=== PATIENT | female | born 1950 | race Caucasian/White ===

== ENCOUNTER 2020-02-27 10:10 | Outpatient (RCR) | payer MEDICARE, SELFPAY ==
--- NOTE | 2020-02-27 | CT_ITS ---
Radiation Therapy Planning CT images; total exam DLP: 547.81 mGy-cm MTDD
--- NOTE | 2020-02-28 11:39 | N.ONRAD NP_ITS ---
Radiation Oncology New Patient Visit Patient: Shanae Seth MR#: [id number] : 1950> Age: 69> Sex: Female> Dictated by: Dr. 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 Breast: Pending as clinically indicated. The lung primary takes precedence over the left breast nodule. Purpose of Visit: Discuss the role of radiotherapy with curative intent. History of Present Illness: The patient is a 69-year-old female with a [id number] history of smoking (recently quit) and coronary artery disease status post cardiac stent and anticoagulation with Plavix. During work-up for a planned coronary artery bypass graft procedure, a CT of the chest (01/08/2020) revealed a large pulmonary mass involving the left lung extending into the left hilum. There is mediastinal adenopathy present with a large subcarinal mass, which measures 3.4 cm in diameter. The left perihilar mass measures [address] of the chest also noted a 1.4 cm nodule within the left breast. A subsequent bronchoscopy (01/11/2020) & left upper lobe brushing revealed atypical cells most consistent with small cell carcinoma (see addendum comment on the pathology report). Further work-up inclusive of an MRI of the brain (01/25/2020) revealed multiple ring-enhancing lesions with surrounding vasogenic edema (no midline shift) consistent with metastatic disease. The patient was prescribed Decadron 4 mg 3 times daily due to her progressive difficulty with ambulation and she was simulated with a plan to begin whole brain radiation therapy. Ultimately, the patient elected not to begin radiation therapy at the [facility] and instead sought to get treatment closer to home. The patient reports being confused with respect to her steroid, and she does not know how many tablets she takes per day. She reports no seizures, headaches, blurred/double vision, shortness of breath, changes in taste, or bone pain. But she does complain of progressive difficulty with ambulation, as well as fatigue. Current Medications: Acetaminophen, adult Aspirin Regimen, dexamethasone, escitalopram Oxalate, ferrous Sulfate, metFORMIN HCl, metoprolol Tartrate, nitroglycerin, plavix, simvastatin, tresiba FlexTouch, zofran ODT. Allergies: No Known Allergies Medical History: - Anxiety, - coronary artery disease, - hypercholesterolemia, - hypertension, - myocardial infarction, - renal failure, - stroke, - thyroid nodule, - type II diabetes. No history of collagen vascular disease. No previous radiation therapy. Surgical History: Appendectomy, bronchoscopy, coronary angiogram with stent placement, portacath placement and thyroidectomy. Social History: Last screened on 02/27/2020 - Yes - but has quit for less than one year. Smoked 1.0 pack/day for 55 years (55 pack years). Last screened on 02/20/2020 - Never drank. Patient indicated use of the following products: cigarettes. Current Complaints / Review of Systems: Constitutional - Complains of lack of appetite. Complains of moderate fatigue. Complains of night sweats which occur occasionally. Complains of rigors / chills occurring frequently. Complains of change in weight has lost about 20 lbs. the past couple of months but is stable now. Denies fever. Eyes - Denies blurred vision, double vision and photophobia. ENMT - Denies dysphagia, ear pain, mouth dryness, stomatitis and altered taste. Neck - Denies neck pain. Integumentary - Complains of rash in the groin. Breasts - Denies pain. Cardiovascular - Complains of moderate chest pain in the substernal. Denies edema. Respiratory - Complains of a moderate cough which is productive. Complains of dyspnea associated with normal activity. Complains of wheezing. Denies hemoptysis. Gastrointestinal - Complains of abdominal pain that is persistent located in the lower abdomen. Complains of intermittent constipation. Complains of heartburn / dyspepsia. Complains of nausea. Denies diarrhea and vomiting. Has distended abdomen. Genitourinary (F) - Complains of nocturia gets up about 2 times per night. Denies dysuria, frequency, urgency, vaginal discharge / bleeding and vaginal spotting. Musculoskeletal - Complains of generalized muscle weakness. Denies bone pain and joint pain. Neurologic - Complains of disorientation to time. Complains of dizziness that occurs upon sitting to standing. Denies headaches. Endocrine - Complains of Type 2 diabetes. Denies thyroid disease. Hematologic/Lymphatic - Denies tender or enlarged lymph nodes.. Vital Signs: Performed on 02/27/2020 11:33 AM BMI - 26.546 kg/m2 (high), Height - 60.50 in, Weight - 138.2 lbs, Temperature - 97.3 f, Pulse - 68, Respiration - 20, O2 Sat - 100 %, Pain - 0 and BP - 148/ 72 mm(hg)(high/). Physical Exam: GENERAL:??? The patient is alert, and in no acute distress. HEENT:??? Head is normocephalic. Face is symmetric. External ocular movements are intact. Sclera and conjunctivae are non erythematous. There are no clinical findings consistent with oral thrush. NECK:??? Trachea is midline.??? Thyroid is not enlarged by palpation.??? LYMPH NODES:??? There is no cervical or supraclavicular adenopathy bilaterally. LUNGS:??? Clear to auscultation bilaterally. Respiratory movement is unlabored. HEART:??? Regular rate and rhythm. EXTREMITIES:??? No deformities. SLOPE HOIST OPERATOR:??? Cranial nerves II-XII are intact and without focal deficits.??? Psych: Affect is normal. Skin: Cursory review of the skin reveals no obvious lesions concerning for malignancy. Performance Status: 3 - Capable of only limited self-care, confined to bed or chair more than 50% of waking hours. (ECOG) Impression: The patient is a 69-year-old female with extensive stage small cell lung carcinoma originating in the left hilar region of the lung. She also has 5 intracranial metastatic lesions involving the right cerebellum, left occipital lobe, right posterior parietal lobe, right superior parietal lobe, and left superior parietal lobe. These lesions demonstrate mild/moderate vasogenic edema without a midline shift and the largest lesion measures 2.2 cm (right posterior parietal lobe). We discussed radiation logistics, prognosis, treatment options, and side effects to radiation which include reduced cognition over time, short-term memory loss, alopecia, and fatigue. We will begin radiation therapy planning today (30 Gy/10 fractions), with plans to start on 02/28/2020. It is not entirely clear to me when the patient actually began dexamethasone or what she takes on a daily basis. Therefore, we will prescribe medication on a weekly basis and begin a slow taper. The patient was recommended to see medical oncology over the next 2 weeks to evaluate for subsequent systemic therapy. Depending on the patient's overall medical condition, perform an status, the patient's treatment goals, and ability to tolerate treatment, it may be worthwhile to consider a PET/CT in the future, plus or minus a left breast mammography/biopsy as clinically indicated. I will defer to medical oncology's opinion regarding these studies. Signed by: Arden Modi MD 02/28/2020 11:59:37 AM <<Signature on File>> CPT Code: CPT Code:
== END 2020-02-27 23:59 | disposition home or self-care (01) ==
LOC: ONCMED 10:10
PROVIDERS: Visit Provider Radiology Radiation Oncology
DX: C34.02 Malignant neoplasm of left main bronchus (principal); C79.31 Secondary malignant neoplasm of brain; N63.20 Unspecified lump in the left breast, unspecified quadrant
CPT/HCPCS: 77290; 77334

== ENCOUNTER 2020-03-10 05:23 | Outpatient (RCR) | payer MEDICARE, SELFPAY ==
--- NOTE | 2020-03-06 07:43 | ONCRAD TMN_ITS ---
Radiation Oncology Weekly Treatment Management Patient: Shanae Seth MR#: [id number] : 1950 Age: 69 Sex: Female Dictated by: Dr. 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 Breast: Pending as clinically indicated. The lung primary takes precedence over the left breast nodule. Radiotherapy to date: Course: Whole Brain, Treatment Site: Whole Brain, Ref. ID: [id number], Energy: 6X, Dose/Fx (cGy): 300, #Fx: , Dose Correction (cGy): 0, Total Dose (cGy): 1,200, Start Date: 02/28/2020, Elapsed Days: 5 Reason for visit: The patient is being seen today as part of their regularly scheduled weekly on treatment visits to assess for acute toxicities from radiotherapy. Interim History: The patient began treatment today and she is tolerating it well. Current Medications: Acetaminophen, adult Aspirin Regimen, dexamethasone, escitalopram Oxalate, ferrous Sulfate, metFORMIN HCl, metoprolol Tartrate, nitroglycerin, plavix, simvastatin, tresiba FlexTouch, zofran ODT. Allergies: No Known Allergies Vital Signs: Performed on 03/04/2020 11:29 AM Height - 60.50 in, Weight - 137.6 lbs (low), BSA - 1.60 sq.m, BMI - 26.43, Temperature - 97.8 f (low), Pulse - 70 /min, Respiration - 20 /min, O2 Sat - 100 %, Pain - 0, BP - 179/ 87 mm(hg)(high/), Performed on 03/04/2020 12:12 PM BMI - 26.431 kg/m2 (high), Height - 60.50 in, Weight - 137.6 lbs, Temperature - 97.8 f, Pulse - 70, Respiration - 20, O2 Sat - 100 %, Pain - 0 and BP - 179/ 87 mm(hg)(high/). Physical Exam: Appears stable, no skin erythema or desquamation. Performance Status: 3 - Capable of only limited self-care, confined to bed or chair more than 50% of waking hours. (ECOG) Lab: None pending in Radiation Oncology. Imaging: Radiation therapy imaging related to accurate target localization (i.e. KV, MV and CBCT) was reviewed. Appropriate changes, if any, were made to ensure treatment accuracy. Plan: The patient is tolerating therapy reasonably well. Radiotherapy will continue as planned. CPT: 82827 Signed by: Dr. Arden Modi 03/06/2020 7:41:59 AM
--- NOTE | 2020-03-07 11:54 | ONC CON_ITS ---
Dr. Westbrook New Patient Note Patient: Shanae Seth Unit #: [id number]: 1950 Dicatated By: Jennifer Westbrook M.D.Date of Visit: Mar 04, 2020 Onc MED New Patient/Consult Referring Physician: Tatyana Kyle History of Present Illness: Ms. Shanae Seth, is a 69-year-old female with a longstanding history of smoking e.g. more than 50 years but patient said she recently quit, recently diagnosed with extensive stage small cell lung cancer with multiple brain mets. As per patient and family during work-up for planned coronary artery bypass graft procedure, on January 08, [address] scan of chest which showed a large pulmonary mass in her left lung extending to the left hilum with mediastinal lymphadenopathy/subcarinal mass measured 3.4 cm in size in the left perihilar mass measuring [address] scan of the chest also noted 1.4 cm nodule in the left breast. On January 11, 2020 patient underwent bronchoscopy and left upper lobe brushing which showed atypical cell and most consistent with small cell carcinoma. Further work-up including MRI scan of the brain done on January 25, 2020 showed multiple ring-enhancing lesions with surrounding vasogenic edema consistent with brain mets there was no evidence of midline shift. Patient was started on dexamethasone 4 mg 3 times a day due to progressive difficulty with balance and questionable mental status changes and she was referred to radiation oncology. And now being evaluated for whole brain radiation therapy. Patient denies any hemoptysis or hematemesis, denies any shortness of breath, denies any headaches or blurred vision, denies any seizure-like activity but generalized weakness and fatigue. And emotional outbursts. Past Medical History: Ms. Seth's medical history consists of anxiety, coronary artery disease, hypercholesterolemia, hypertension, myocardial infarction, renal failure, stroke, thyroid nodule, and type II diabetes. Past Surgical History: Ms. Seth's surgical/procedural history consists of appendectomy, bronchoscopy, coronary angiogram with stent placement, portacath placement, and thyroidectomy. Medications: Acetaminophen 2 Tablet (of 500 mg) Oral PRN, Adult Aspirin Regimen 1 Tablet (of 81 mg) Tablet, enteric coated Oral daily, Escitalopram Oxalate 1 Tablet (of 20 mg) Oral daily, Ferrous Sulfate 1 Tablet (of 325 (65 fe) mg) Oral daily, metFORMIN HCl 1 tablespoonful(s) (of 500 mg) Tablet Oral daily, Metoprolol Tartrate 1 Tablet (of 100 mg) Oral b.i.d., Nitroglycerin 1 Tablet (of 0.4 mg) Tablet, sublingual Sublingual PRN, Plavix 1 Tablet (of 75 mg) Oral daily, Simvastatin 1 Tablet (of 5 mg) Oral at bedtime, Tresiba FlexTouch 40 Units (of 100 Units/mL) Subcutaneous daily, Zofran ODT 1 Tablet (of 4 mg) Tablet Dispersable Oral q 6 hours Allergies: No Known Allergies. Social History: Ms. Seth is . Ms. Seth quit smoking less than one year ago but had smoked 1.0 pack/day for 55 years. She has no history of drinking. She has indicated exposure to the following products: cigarettes. Family History: There is no documented family history. Review Of Symptoms: Review of Systems is not available for this patient. Vital Signs: Performed on Mar 04, 2020 12:12: 60.50 in, 137.6 lbs, 97.8 F, 70, 20, 179/87 mm(hg) (HIGH), 100 %, 0, Performed on Mar 04, 2020 12:12: 26.431 kg/m2 (HIGH), and Performed on Mar 04, 2020 11:29: 1.60 sq.m. Performance Status: 1 - No physically strenuous activity, but ambulatory and able to carry out light or sedentary work (e.g. office work, light house work). (ECOG) Physical Examination: ENMT - No mouth sores, no thrush, no jaundice, Respiratory - Lungs are clear to auscultation, Cardiovascular - Regular rate and rhythm of heart, Abdomen - Soft, bowel sounds present, Extremities - No visible edema. Lab/Imaging: Most recent lab results are not available for this patient. Impression: Extensive stage small cell lung cancer per bronchoscopy done on January 11, 2020 CT scan of the chest done on January 08, 2020 large left hilar mass starting in suprahilar region extending down to hilum with mediastinal disease involving subcarinal lymph node which measured 3.4 cm diameter and left perihilar mass which measured 3 cm., COPD and emphysematous changes are present. No definite abnormality seen in upper abdomen and the liver or spleen And also showed 1.4 cm diameter mass in left breast MRI scan of the brain done on January 25, 2020 shows multiple ring-enhancing lesions with surrounding vasogenic edema Clinical stage, extensive stage with brain mets COPD/emphysema History of smoking more than 50 years. Patient recently quit Plan: Discussed with patient and family regarding her disease status and treatment options, patient has extensive brain mets, symptomatic, now being treated with dexamethasone and also being evaluated for whole brain radiation therapy. In the meantime, we will consider Port-A-Cath placement and once patient complete her whole brain radiation therapy, will consider starting on systemic therapy with carboplatin/etoposide plus minus Tecentriq Every 3 weeks and if needed may consider Neulasta to prevent chemotherapy-induced neutropenia. All the side effects possible benefits associated with systemic chemotherapy including but not limited to bone marrow suppression, hair loss, nausea vomiting, were mentioned, further teaching will done by chemotherapy nurse. Will obtain approval from her insurance prior to the treatment and patient will return to clinic 1 week after completion of whole brain radiation therapy. We will also consider starting allopurinol 100 mg p.o. 3 times daily prior to chemotherapy. Patient has large subcarinal lymph node, at this time patient has no symptoms due to external compression on her esophagus but if patient develops some symptoms due to disease progression in chest, we may consider palliative radiation to chest while patient is completing whole brain radiation therapy. Signed By: Jennifer Westbrook M.D. <<Signature on File>>
== END 2020-03-10 23:00 | disposition home or self-care (01) ==
LOC: ONCMED 05:23
PROVIDERS: Absent Provider Radiology Radiation Oncology; Visit Provider Radiology Radiation Oncology
DX: Z51.0 Encounter for antineoplastic radiation therapy (principal); C79.31 Secondary malignant neoplasm of brain; C34.12 Malignant neoplasm of upper lobe, left bronchus or lung; N63.20 Unspecified lump in the left breast, unspecified quadrant; R59.0 Localized enlarged lymph nodes; J43.9 Emphysema, unspecified; Z87.891 Personal history of nicotine dependence; Z79.52 Long term (current) use of systemic steroids
CPT/HCPCS: 77295; 77300; 77334; 77336; 77387; 77412; G0463

== ENCOUNTER 2020-03-10 23:50 | Inpatient (IN) | payer MEDICARE, SELFPAY ==
[2020-03-11] VITALS (25 sets, daily range): BP systolic 84–168; BP diastolic 48–110; PULSE 60–107; RESP 1–28; TEMP 36.3–37.4; O2SAT 89–100; BMI 28.3
--- NOTE | 2020-03-11 00:04 | XRR_ITS ---
PROCEDURE INFORMATION: Exam: XR Chest, 1 View Exam date and time: 03/11/2020 12:24 AM Age: 69 years old Clinical indication: Other: AMS; Prior surgery; Surgery type: Thyroid, appy, stent, port TECHNIQUE: Imaging protocol: XR of the chest Views: 1 view. COMPARISON: CT chest [facility] [id number] 01/08/2020 3:26 PM FINDINGS: Lungs: Calcified granuloma right upper lobe. Interstitial infiltrate right lower lobe. Paramediastinal left upper lobe interstitial opacity. Consolidation of lingula and retrocardiac left lower lobe. Pleural space: Unremarkable. No pleural effusion. No pneumothorax. Heart/Mediastinum: Unremarkable. No cardiomegaly. Bones/joints: Degenerative change of the spine. Osteopenia. XR/XR chest 1V portable [id number] IMPRESSION: Patchy interstitial and partially alveolar opacities bilaterally suspicious for areas of pneumonia.
--- NOTE | 2020-03-11 00:04 | CTR_ITS ---
PROCEDURE INFORMATION: Exam: CT Head Without Contrast Exam date and time: 03/11/2020 12:15 AM Age: 69 years old Clinical indication: Altered mental status/memory loss; Additional info: AMS TECHNIQUE: Imaging protocol: Computed tomography of the head without contrast. Radiation optimization: All CT scans at this facility use at least one of these dose optimization techniques: automated exposure control; mA and/or kV adjustment per patient size (includes targeted exams where dose is matched to clinical indication); or iterative reconstruction. ADDITIONAL STUDY INFORMATION: Total DLP (mGy-cm): 747.15 COMPARISON: MR head wo/w con [id number] 01/25/2020 8:17 AM FINDINGS: Examination is limited by artifacts from patient motion. Again demonstrated is small mass-like area in upper aspect of each frontal lobe and in right parietal lobe, that in right parietal lobe appears somewhat cystic, findings are worrisome for metastatic disease. There is moderate low density in the bilateral periventricular white matter which may represent chronic small vessel ischemic disease in the appropriate clinical setting. The possibility of superimposed acute infarctions cannot be excluded; consider MRI brain (including diffusion images) for further assessment if clinically warranted and if patient has no contraindication to MRI. There are prominent intracranial arterial calcifications. Ventricles do not appear significantly dilated. No definite depressed calvarial fracture is demonstrated. There is opacification in left visualized sphenoid sinus, most compatible with mucosal disease. Visualized mastoid air cells demonstrate no significant opacification. CT/CT head wo con* [id number] IMPRESSION: Again demonstrated is small mass-like area in upper aspect of each frontal lobe and in right parietal lobe, that in right parietal lobe appears somewhat cystic, findings are worrisome for metastatic disease. Probable chronic ischemic changes as discussed above. There is opacification in left visualized sphenoid sinus, most compatible with mucosal disease. Radiation Dose CTDIVOL = (mGy): DLP = 747.15 (mGy-cm)
[2020-03-11 00:13] LABS: Glucose Point of Care 91 mg/dL (70-110)
[2020-03-11 00:36] LABS: Basophils % 0.3 %; Hematocrit 39.7 % (37.0-47.0); Hemoglobin 11.8 g/dL (11.5-15.3); Lymphocytes # 0.4 10^3/uL (0.8-4.8); Lymphocytes % 3.1 %; Mean Corpuscular HGB Conc 29.7 g/dL (30.0-36.0); Mean Corpuscular Hemoglobin 27.6 pg (28.0-34.0); Mean Corpuscular Volume 92.8 fL (81-99); Mean Platelet Volume 10.6 fL (7.4-10.4); Monocytes # 0.1 10^3/uL (0.2-0.9); Neutrophils # 11.13 10^3/uL (1.8-7.7); Neutrophils % 95.3 %; Nucleated Red Blood Cells % 0 %; Platelet Count 151 10^3/cmm (130-400); Red Blood Count 4.28 10^6/uL (4.1-5.3); Red Cell Distribution Width 16.2 % (12.1-15.1); White Blood Count 11.7 10^3/uL (4.0-10.0)
[2020-03-11] MEDS: ondansetron 2 mg/ML SDV 2 mL 4 MG IVP (00:43)
[2020-03-11 00:47] LABS: Troponin(5th) Baseline 42 ng/L (0-10)
[2020-03-11] MEDS: piperacillin-tazobactam 3.375 GM in sodium chloride 0.9% (plus) 50 ML IV ×3 (00:48→17:18)
[2020-03-11] MEDS: sodium chloride 0.9% 1,000 ML 100 ML IV (00:48)
[2020-03-11 00:56] LABS: Alanine Aminotransferase 65 U/L (0-33); Albumin Level 3.2 g/dL (3.5-5.2); Alkaline Phosphatase 132 IU/L (35-105); Anion Gap 19.7 (5-19); Aspartate Amino Transferase 65 U/L (0-32); Blood Urea Nitrogen 29 mg/dL (8-23); Carbon Dioxide 25 mmol/L (22-29); Chloride 102 mmol/L (98-107); Globulin 2.5 g/dL (1.3-4.6); Glomerular Filtration Rate 70.9 mL/min (90-130); Glucose 104 mg/dL (65-115); Magnesium 1.5 mg/dL (1.7-2.3); NT Pro B Type Natriuretic Pept 7367 pg/mL (0-125); Osmolality Calculated 302 mOsm/kg (285-295); Potassium 3.7 mmol/L (3.5-5.1); Sodium 143 mmol/L (136-145); Total Bilirubin 0.3 mg/dL (0.15-1.2); Total Protein 5.7 g/dL (6.6-8.7)
[2020-03-11 00:58] LABS: Influenza A by IFA Negative (Negative); Influenza B by IFA Negative (Negative); SARS Covid-2 Antigen Negative (Negative)
--- NOTE | 2020-03-11 01:13 | ED_ITS ---
HPI - SOB/Dyspnea General: Chief Complaint: Shortness of Breath/Dyspnea Stated Complaint: HYPOGLYCEMIA Time Seen by Provider: 03/11/20 00:01 Source: patient Mode of arrival: ambulatory Limitations: no limitations History of Present Illness: HPI Narrative: Shanae is a 69-year-old female who comes in from [facility] with report of altered mental status. The patient was found by family unresponsive. Supposedly earlier today she received chemotherapy for an unknown type of cancer. Upon EMS arrival patient was had a blood sugar of 32. She was given an amp of D50 and aroused but then complained of shortness of breath. Here she is somewhat agitated and denies pain but states that she is short of breath. She is hypoxic in the 80s on room air oxygen. Patient is not cooperative for further history so it is found from old charts and taken from EMS. Review of Systems General: Reports: ROS unobtainable due to mental status [facility] ED PFSH: Medical History Brain metastases Chronic kidney disease Coronary artery disease CVA (cerebral vascular accident) Port-A-Cath in place Small cell lung cancer Thyroid nodule Type 2 diabetes mellitus Surgical History H/O thyroidectomy History of appendectomy History of bronchoscopy Stented coronary artery Family History Other No significant family history Social History Smoking and tobacco status: former smoker Quit status (tobacco): has quit using tobacco Former quit date comment: 2018, [id number] smoking history Alcohol intake: never Substance/Drug Use: never Marital status: Physical Exam Const: COMMON NORMALS: alert GENERAL APPEARANCE: in distress, lethargic and ill appearing ORIENTATION/CONSCIOUSNESS: Yes oriented to person, Yes confused and Yes lethargic; not oriented to place and not oriented to time HENMT: COMMON NORMALS: normocephalic, atraumatic, external ears normal, EAC's normal and Normal external nose present HEAD & SCALP: normal to inspection, normocephalic and atraumatic FACE & SINUS: normal facial exam and face symmetric NOSE: Normal external nose present and Normal nares present EXTERNAL EAR: Yes external ears normal EXTERNAL AUDITORY CANAL: EAC's normal MOUTH: Normal oral and palatal mucosa present, lip normal and tongue normal Eye: COMMON NORMALS: Equal, round and reactive pupils present and conjunctivae normal GENERAL EYE: appearance normal, both eyes and all related structures ALIGNMENT: Yes alignment normal PERIORBITAL: periorbital findings normal EYELID: eyelids normal CONJUNCTIVA: Yes conjunctivae normal SCLERA: sclerae normal PUPIL: Yes Equal, round and reactive pupils present Neck/C-Spine: COMMON NORMALS: full ROM, no lymphadenopathy, supple, no meningeal signs and no JVD GENERAL: Yes normal visual inspection and Yes trachea midline Chest: COMMONS NORMALS: normal inspection of the chest and normal palpation of entire chest wall Resp: EFFORT & INSPECTION: Yes respiratory distress, Yes uses accessory muscl es and Yes audible wheezes AUSCULTATION: rhonchi, wheezes and diminished lung sounds Cardio: COMMON NORMALS: no JVD, regular rate, regular rhythm, S1 normal heart sound present and S2 normal heart sound present RATE: regular rate RHYTHM: regular rhythm HEART SOUNDS: S1 normal heart sound present, S2 normal heart sound present, no click, no gallops, no murmurs and no rubs GI: COMMON NORMALS: Soft to palpation and No hepatosplenomegaly present PALPATION: Yes Soft to palpation, No Tenderness to palpation present (GI), No Guarding due to palpation present (GI), No Rigid due to palpation, Yes No hepatosplenomegaly present, No Hernia present, No Palpable mass present and No Pulsatile mass present : COMMON NORMALS: Yes no CVA tenderness BLADDER/KIDNEY EXAM: Yes no CVA tenderness EXTERNAL FEMALE EXAM: No Hernia present Back/Pelvis: COMMON NORMALS: no CVA tenderness, thoracic and lumbar spine normal to inspection, no thoracic nor lumbar tenderness and thoraco-lumbar ROM normal Extremity: COMMON NORMALS: normal to inspection, full ROM, capillary refill normal, no joint enlargement, no clubbing, cyanosis or edema and no calf tenderness Neuro: COMMON NORMALS: CN's II-XII intact bilaterally, moves all extremities, no focal motor deficits and no sensory deficits noted SENSORIUM/ORIENTATION: Yes alert, Yes oriented to person, No oriented to place, No oriented to time and Yes lethargic MENINGEAL SIGNS: Yes no meningeal signs SPEECH: speech normal Skin: COMMON NORMALS: no rashes or lesions noted, turgor normal, no jaundice, no petechiae and no mottling GENERAL SKIN EXAM: no rashes or lesions noted and turgor normal Course Vital Signs: Vital signs: Vital Signs Temperature 98.1 F 03/11/20 00:03 Pulse Rate 76 03/11/20 04:15 Respiratory Rate 18 03/11/20 04:15 Blood Pressure 90/49 03/11/20 04:15 Pulse Oximetry 97 03/11/20 04:15 MDM - SOB/Dyspnea MDM Narrative: Medical decision making narrative: The patient is doing better with her breathing with the BiPAP. She continues to have hypoglycemic episodes but I have been hesitant to feed her until she is certainly turned the corner with her breathing. She has had to have 2 bolus doses of D50. I have her on D5 half-normal saline at 150-hour now and so far she has been maintaining. The case was endorsed to Dr. Cross who agrees to come and evaluate the patient here in the ER. Further care will be dictated by him. Lab Data: Labs: Lab Results 03/11/20 03/11/20 03/11/20 Range/Units 00:08 00:20 00:20 WBC 11.7 H (4.0-10.0) 10^3/ uL RBC 4.28 (4.1-5.3) 10^6/u L Hgb 11.8 (11.5-15.3) g/dL Hct 39.7 (37.0-47.0) % MCV 92.8 (81-99) fL MCH 27.6 L (28.0-34.0) pg MCHC 29.7 L (30.0-36.0) g/dL RDW 16.2 H (12.1-15.1) % Plt Count 151 (130-400) 10^3/c mm MPV 10.6 H (7.4-10.4) fL Neut % (Auto) 95.3 % Lymph % (Auto) 3.1 % [place] % (Auto) 1.0 % Eos % (Auto) 0.0 % Baso % (Auto) 0.3 % Neut # (Auto) 11.13 H (1.8-7.7) 10^3/u L Lymph # (Auto) 0.4 L (0.8-4.8) 10^3/u L [place] # (Auto) 0.1 L (0.2-0.9) 10^3/u L Eos # (Auto) 0.0 (0.0-0.8) 10^3/u L Baso # (Auto) 0.0 (0.0-0.1) 10^3/u L Nucleated RBC % (a uto) 0 % Nucleated RBCs # 0.0 /100WBC D-Dimer (0-0.59) ug/mIFE U Specimen Type Sample Site ABG pH (7.35-7.45) ABG pCO2 (35-45) mmHg ABG pO2 (80.0-100.0) mmH g ABG HCO3 (22-26) mmol/L ABG Base Excess (-2.0-2.0) mmol/ L Kavon Test Hematocrit (37-47) % O2 Delivery Device O2 Liters/Min % FiO2 % Creative Consultant ID Sodium 143 (136-145) mmol/L Potassium 3.7 (3.5-5.1) mmol/L Chloride 102 (98-107) mmol/L Carbon Dioxide 25 (22-29) mmol/L Anion Gap 19.7 H (5-19) BUN 29 H (8-23) mg/dL Creatinine 0.8 (0.5-0.9) mg/dL GFR Calculation 70.9 L (90-130) mL/min Glucose 104 (65-115) mg/dL POC Glucose 91 (70-110) mg/dL Calculated Osmolal ity 302 H (285-295) mOsm/k g Lactic Acid (0.5-2.2) mmol/L Lactic Acid (Sepsi s) (0.5-2.2) mmol/L Calcium 8.0 L (8.5-10.5) mg/dL Magnesium 1.5 L (1.7-2.3) mg/dL Total Bilirubin 0.3 (0.15-1.2) mg/dL AST 65 H (0-32) U/L ALT 65 H (0-33) U/L Alkaline Phosphata se 132 H (35-105) IU/L Troponin T Baselin e (0-10) ng/L Troponin T 120 Min tunica-biloxi (0-10) ng/L Delta Troponin T (0-10) ABS# NT-Pro-B Natriuret Pep 7367 H (0-125) pg/mL Total Protein 5.7 L (6.6-8.7) g/dL Albumin 3.2 L (3.5-5.2) g/dL Globulin 2.5 (1.3-4.6) g/dL Urine Color (Yellow) Urine Appearance (CLEAR) Urine pH (5-7) Ur Specific Gravit y (1.005-1.030) Urine Protein (Negative) Urine Glucose (UA) (Normal) Urine Ketones (Negative) Urine Blood (Negative) Urine Nitrate (Negative) Urine Bilirubin (Negative) Urine Urobilinogen (Negative) mg/dL Ur Leukocyte Kathryn ase (Negative) Urine RBC (0-2) /hpf Urine WBC (0-5) /hpf Ur Squamous Epith Cells (0-5) /hpf Ur Transition Epit h Cell /hpf Other Crystals /hpf Amorphous Sediment /hpf Urine Bacteria (NONE) /hpf Urine Mucus /hpf Influenza Type A A g (Negative) Influenza Type B A g (Negative) SARS-CoV-2 Ag (Rap id) (Negative) 03/11/20 03/11/20 03/11/20 Range/Units 00:20 00:20 00:20 WBC (4.0-10.0) 10^3/ uL RBC (4.1-5.3) 10^6/u L Hgb (11.5-15.3) g/dL Hct (37.0-47.0) % MCV (81-99) fL MCH (28.0-34.0) pg MCHC (30.0-36.0) g/dL RDW (12.1-15.1) % Plt Count (130-400) 10^3/c mm MPV (7.4-10.4) fL Neut % (Auto) % Lymph % (Auto) % [place] % (Auto) % Eos % (Auto) % Baso % (Auto) % Neut # (Auto) (1.8-7.7) 10^3/u L Lymph # (Auto) (0.8-4.8) 10^3/u L [place] # (Auto) (0.2-0.9) 10^3/u L Eos # (Auto) (0.0-0.8) 10^3/u L Baso # (Auto) (0.0-0.1) 10^3/u L Nucleated RBC % (a uto) % Nucleated RBCs # /100WBC D-Dimer (0-0.59) ug/mIFE U Specimen Type Sample Site ABG pH (7.35-7.45) ABG pCO2 (35-45) mmHg ABG pO2 (80.0-100.0) mmH g ABG HCO3 (22-26) mmol/L ABG Base Excess (-2.0-2.0) mmol/ L Kavon Test Hematocrit (37-47) % O2 Delivery Device O2 Liters/Min % FiO2 % Creative Consultant ID Sodium (136-145) mmol/L Potassium (3.5-5.1) mmol/L Chloride (98-107) mmol/L Carbon Dioxide (22-29) mmol/L Anion Gap (5-19) BUN (8-23) mg/dL Creatinine (0.5-0.9) mg/dL GFR Calculation (90-130) mL/min Glucose (65-115) mg/dL POC Glucose (70-110) mg/dL Calculated Osmolal ity (285-295) mOsm/k g Lactic Acid 4.0 H (0.5-2.2) mmol/L Lactic Acid (Sepsi s) (0.5-2.2) mmol/L Calcium (8.5-10.5) mg/dL Magnesium (1.7-2.3) mg/dL Total Bilirubin (0.15-1.2) mg/dL AST (0-32) U/L ALT (0-33) U/L Alkaline Phosphata se (35-105) IU/L Troponin T Baselin e 42 H (0-10) ng/L Troponin T 120 Min tunica-biloxi (0-10) ng/L Delta Troponin T (0-10) ABS# NT-Pro-B Natriuret Pep (0-125) pg/mL Total Protein (6.6-8.7) g/dL Albumin (3.5-5.2) g/dL Globulin (1.3-4.6) g/dL Urine Color (Yellow) Urine Appearance (CLEAR) Urine pH (5-7) Ur Specific Gravit y (1.005-1.030) Urine Protein (Negative) Urine Glucose (UA) (Normal) Urine Ketones (Negative) Urine Blood (Negative) Urine Nitrate (Negative) Urine Bilirubin (Negative) Urine Urobilinogen (Negative) mg/dL Ur Leukocyte Kathryn ase (Negative) Urine RBC (0-2) /hpf Urine WBC (0-5) /hpf Ur Squamous Epith Cells (0-5) /hpf Ur Transition Epit h Cell /hpf Other Crystals /hpf Amorphous Sediment /hpf Urine Bacteria (NONE) /hpf Urine Mucus /hpf Influenza Type A A g (Negative) Influenza Type B A g (Negative) SARS-CoV-2 Ag (Rap id) Negative (Negative) 03/11/20 03/11/20 03/11/20 Range/Units 00:20 00:20 00:30 WBC (4.0-10.0) 10^3/ uL RBC (4.1-5.3) 10^6/u L Hgb (11.5-15.3) g/dL Hct (37.0-47.0) % MCV (81-99) fL MCH (28.0-34.0) pg MCHC (30.0-36.0) g/dL RDW (12.1-15.1) % Plt Count (130-400) 10^3/c mm MPV (7.4-10.4) fL Neut % (Auto) % Lymph % (Auto) % [place] % (Auto) % Eos % (Auto) % Baso % (Auto) % Neut # (Auto) (1.8-7.7) 10^3/u L Lymph # (Auto) (0.8-4.8) 10^3/u L [place] # (Auto) (0.2-0.9) 10^3/u L Eos # (Auto) (0.0-0.8) 10^3/u L Baso # (Auto) (0.0-0.1) 10^3/u L Nucleated RBC % (a uto) % Nucleated RBCs # /100WBC D-Dimer 4.00 H (0-0.59) ug/mIFE U Specimen Type Arterial Sample Site Radial, right ABG pH 7.28 L (7.35-7.45) ABG pCO2 50.2 H (35-45) mmHg ABG pO2 71.4 L (80.0-100.0) mmH g ABG HCO3 23.4 (22-26) mmol/L ABG Base Excess -3.8 L (-2.0-2.0) mmol/ L Kavon Test Pos Hematocrit 36.6 L (37-47) % O2 Delivery Device Nc O2 Liters/Min 2.0 % FiO2 % Creative Consultant ID ellpe Sodium (136-145) mmol/L Potassium (3.5-5.1) mmol/L Chloride (98-107) mmol/L Carbon Dioxide (22-29) mmol/L Anion Gap (5-19) BUN (8-23) mg/dL Creatinine (0.5-0.9) mg/dL GFR Calculation (90-130) mL/min Glucose (65-115) mg/dL POC Glucose (70-110) mg/dL Calculated Osmolal ity (285-295) mOsm/k g Lactic Acid (0.5-2.2) mmol/L Lactic Acid (Sepsi s) (0.5-2.2) mmol/L Calcium (8.5-10.5) mg/dL Magnesium (1.7-2.3) mg/dL Total Bilirubin (0.15-1.2) mg/dL AST (0-32) U/L ALT (0-33) U/L Alkaline Phosphata se (35-105) IU/L Troponin T Baselin e (0-10) ng/L Troponin T 120 Min tunica-biloxi (0-10) ng/L Delta Troponin T (0-10) ABS# NT-Pro-B Natriuret Pep (0-125) pg/mL Total Protein (6.6-8.7) g/dL Albumin (3.5-5.2) g/dL Globulin (1.3-4.6) g/dL Urine Color (Yellow) Urine Appearance (CLEAR) Urine pH (5-7) Ur Specific Gravit y (1.005-1.030) Urine Protein (Negative) Urine Glucose (UA) (Normal) Urine Ketones (Negative) Urine Blood (Negative) Urine Nitrate (Negative) Urine Bilirubin (Negative) Urine Urobilinogen (Negative) mg/dL Ur Leukocyte Kathryn ase (Negative) Urine RBC (0-2) /hpf Urine WBC (0-5) /hpf Ur Squamous Epith Cells (0-5) /hpf Ur Transition Epit h Cell /hpf Other Crystals /hpf Amorphous Sediment /hpf Urine Bacteria (NONE) /hpf Urine Mucus /hpf Influenza Type A A g Negative (Negative) Influenza Type B A g Negative (Negative) SARS-CoV-2 Ag (Rap id) (Negative) 03/11/20 03/11/20 03/11/20 Range/Units 01:38 01:40 02:35 WBC (4.0-10.0) 10^3/ uL RBC (4.1-5.3) 10^6/u L Hgb (11.5-15.3) g/dL Hct (37.0-47.0) % MCV (81-99) fL MCH (28.0-34.0) pg MCHC (30.0-36.0) g/dL RDW (12.1-15.1) % Plt Count (130-400) 10^3/c mm MPV (7.4-10.4) fL Neut % (Auto) % Lymph % (Auto) % [place] % (Auto) % Eos % (Auto) % Baso % (Auto) % Neut # (Auto) (1.8-7.7) 10^3/u L Lymph # (Auto) (0.8-4.8) 10^3/u L [place] # (Auto) (0.2-0.9) 10^3/u L Eos # (Auto) (0.0-0.8) 10^3/u L Baso # (Auto) (0.0-0.1) 10^3/u L Nucleated RBC % (a uto) % Nucleated RBCs # /100WBC D-Dimer (0-0.59) ug/mIFE U Specimen Type Arterial Sample Site Radial, right ABG pH 7.35 (7.35-7.45) ABG pCO2 43.8 (35-45) mmHg ABG pO2 74.3 L (80.0-100.0) mmH g ABG HCO3 24.1 (22-26) mmol/L ABG Base Excess -1.6 (-2.0-2.0) mmol/ L Kavon Test Pos Hematocrit 32.3 L (37-47) % O2 Delivery Device Vent O2 Liters/Min % FiO2 30.0 % Creative Consultant ID ellpe Sodium (136-145) mmol/L Potassium (3.5-5.1) mmol/L Chloride (98-107) mmol/L Carbon Dioxide (22-29) mmol/L Anion Gap (5-19) BUN (8-23) mg/dL Creatinine (0.5-0.9) mg/dL GFR Calculation (90-130) mL/min Glucose (65-115) mg/dL POC Glucose (70-110) mg/dL Calculated Osmolal ity (285-295) mOsm/k g Lactic Acid (0.5-2.2) mmol/L Lactic Acid (Sepsi s) (0.5-2.2) mmol/L Calcium (8.5-10.5) mg/dL Magnesium (1.7-2.3) mg/dL Total Bilirubin (0.15-1.2) mg/dL AST (0-32) U/L ALT (0-33) U/L Alkaline Phosphata se (35-105) IU/L Troponin T Baselin e (0-10) ng/L Troponin T 120 Min tunica-biloxi 42.75 H (0-10) ng/L Delta Troponin T 0.75 (0-10) ABS# NT-Pro-B Natriuret Pep (0-125) pg/mL Total Protein (6.6-8.7) g/dL Albumin (3.5-5.2) g/dL Globulin (1.3-4.6) g/dL Urine Color Yellow (Yellow) Urine Appearance Sl hazy (CLEAR) Urine pH 5 (5-7) Ur Specific Gravit y 1.020 (1.005-1.030) Urine Protein 1+ H (Negative) Urine Glucose (UA) 2+ (Normal) Urine Ketones Negative (Negative) Urine Blood Neg (Negative) Urine Nitrate Negative (Negative) Urine Bilirubin Neg (Negative) Urine Urobilinogen Norm (Negative) mg/dL Ur Leukocyte Kathryn ase Negative (Negative) Urine RBC 0-4 H (0-2) /hpf Urine WBC 0-4 H (0-5) /hpf Ur Squamous Epith Cells 5-10 H (0-5) /hpf Ur Transition Epit h Cell 0-4 /hpf Other Crystals Amm biurate /hpf Amorphous Sediment 1+ /hpf Urine Bacteria Trace (NONE) /hpf Urine Mucus Trace /hpf Influenza Type A A g (Negative) Influenza Type B A g (Negative) SARS-CoV-2 Ag (Rap id) (Negative) 03/11/20 Range/Units 02:35 WBC (4.0-10.0) 10^3/ uL RBC (4.1-5.3) 10^6/u L Hgb (11.5-15.3) g/dL Hct (37.0-47.0) % MCV (81-99) fL MCH (28.0-34.0) pg MCHC (30.0-36.0) g/dL RDW (12.1-15.1) % Plt Count (130-400) 10^3/c mm MPV (7.4-10.4) fL Neut % (Auto) % Lymph % (Auto) % [place] % (Auto) % Eos % (Auto) % Baso % (Auto) % Neut # (Auto) (1.8-7.7) 10^3/u L Lymph # (Auto) (0.8-4.8) 10^3/u L [place] # (Auto) (0.2-0.9) 10^3/u L Eos # (Auto) (0.0-0.8) 10^3/u L Baso # (Auto) (0.0-0.1) 10^3/u L Nucleated RBC % (a uto) % Nucleated RBCs # /100WBC D-Dimer (0-0.59) ug/mIFE U Specimen Type Sample Site ABG pH (7.35-7.45) ABG pCO2 (35-45) mmHg ABG pO2 (80.0-100.0) mmH g ABG HCO3 (22-26) mmol/L ABG Base Excess (-2.0-2.0) mmol/ L Kavon Test Hematocrit (37-47) % O2 Delivery Device O2 Liters/Min % FiO2 % Creative Consultant ID Sodium (136-145) mmol/L Potassium (3.5-5.1) mmol/L Chloride (98-107) mmol/L Carbon Dioxide (22-29) mmol/L Anion Gap (5-19) BUN (8-23) mg/dL Creatinine (0.5-0.9) mg/dL GFR Calculation (90-130) mL/min Glucose (65-115) mg/dL POC Glucose (70-110) mg/dL Calculated Osmolal ity (285-295) mOsm/k g Lactic Acid (0.5-2.2) mmol/L Lactic Acid (Sepsi s) 2.3 H (0.5-2.2) mmol/L Calcium (8.5-10.5) mg/dL Magnesium (1.7-2.3) mg/dL Total Bilirubin (0.15-1.2) mg/dL AST (0-32) U/L ALT (0-33) U/L Alkaline Phosphata se (35-105) IU/L Troponin T Baselin e (0-10) ng/L Troponin T 120 Min tunica-biloxi (0-10) ng/L Delta Troponin T (0-10) ABS# NT-Pro-B Natriuret Pep (0-125) pg/mL Total Protein (6.6-8.7) g/dL Albumin (3.5-5.2) g/dL Globulin (1.3-4.6) g/dL Urine Color (Yellow) Urine Appearance (CLEAR) Urine pH (5-7) Ur Specific Gravit y (1.005-1.030) Urine Protein (Negative) Urine Glucose (UA) (Normal) Urine Ketones (Negative) Urine Blood (Negative) Urine Nitrate (Negative) Urine Bilirubin (Negative) Urine Urobilinogen (Negative) mg/dL Ur Leukocyte Kathryn ase (Negative) Urine RBC (0-2) /hpf Urine WBC (0-5) /hpf Ur Squamous Epith Cells (0-5) /hpf Ur Transition Epit h Cell /hpf Other Crystals /hpf Amorphous Sediment /hpf Urine Bacteria (NONE) /hpf Urine Mucus /hpf Influenza Type A A g (Negative) Influenza Type B A g (Negative) SARS-CoV-2 Ag (Rap id) (Negative) Imaging Data^: CXR: Attestation: I personally reviewed and interpreted this imaging study as follows: My impression: Bibasilar infiltrates left greater than right. CT Head: Radiologist's impression: [address] [address] [address] Scan Report Signed Patient: Shanae Seth Unit #: [id number] : 1950 Age/Sex: 69 / F ADM Date: 03/10/20 Loc: ER Room/Bed: Attending Dr: Ordering Provider/Ordering MD: Dang Pfeiffer DO Date of Service: 03/11/20 Procedure(s): CT head wo con* [id number] Accession Number(s): [id number] Report Number: [id number] PROCEDURE INFORMATION: Exam: CT Head Without Contrast Exam date and time: 03/11/2020 12:15 AM Age: 69 years old Clinical indication: Altered mental status/memory loss; Additional info: AMS TECHNIQUE: Imaging protocol: Computed tomography of the head without contrast. Radiation optimization: All CT scans at this facility use at least one of these dose optimization techniques: automated exposure control; mA and/or kV adjustment per patient size (includes targeted exams where dose is matched to clinical indication); or iterative reconstruction. ADDITIONAL STUDY INFORMATION: Total DLP (mGy-cm): 747.15 COMPARISON: MR head wo/w con [id number] 01/25/2020 8:17 AM FINDINGS: Examination is limited by artifacts from patient motion. Again demonstrated is small mass-like area in upper aspect of each frontal lobe and in right parietal lobe, that in right parietal lobe appears somewhat cystic, findings are worrisome for metastatic disease. There is moderate low density in the bilateral periventricular white matter which may represent chronic small vessel ischemic disease in the appropriate clinical setting. The possibility of superimposed acute infarctions cannot be excluded; consider MRI brain (including diffusion images) for further assessment if clinically warranted and if patient has no contraindication to MRI. There are prominent intracranial arterial calcifications. Ventricles do not appear significantly dilated. No definite depressed calvarial fracture is demonstrated. There is opacification in left visualized sphenoid sinus, most compatible with mucosal disease. Visualized mastoid air cells demonstrate no significant opacification. CT/CT head wo con* [id number] IMPRESSION: Again demonstrated is small mass-like area in upper aspect of each frontal lobe and in right parietal lobe, that in right parietal lobe appears somewhat cystic, findings are worrisome for metastatic disease. Probable chronic ischemic changes as discussed above. There is opacification in left visualized sphenoid sinus, most compatible with mucosal disease. Radiation Dose CTDIVOL = (mGy): DLP = 747.15 (mGy-cm) Dictated By: Veronika Cabrera MD Signed By: Veronika Cabrera MD Signed Date/Time: 03/11/20417 DD/ 7 CT Chest: Radiologist's impression: [facility] [address] [place] [address] CT Scan Report Signed Patient: Shanae Seth Unit #: [id number] : 1950 Age/Sex: 69 / F ADM Date: 03/10/20 Loc: ER Room/Bed: Attending Dr: Ordering Provider/Ordering MD: Dang Pfeiffer DO Date of Service: 03/11/20 Procedure(s): CT angio chest PE protcl [id number] Accession Number(s): [id number] Report Number: [id number] PROCEDURE INFORMATION: Exam: CT Angiography Chest With Contrast Exam date and time: 03/11/2020 3:08 AM Age: 69 years old Clinical indication: Abnormal findings; Abnormal diagnostic tests; Elevated d-dimer; Dyspnea; Additional info: Shortness of breath TECHNIQUE: Imaging protocol: Computed tomographic angiography of the chest with intravenous contrast. 3D rendering (Not supervised by radiologist): MIP and/or 3D reconstructed images were created by the technologist. Radiation optimization: All CT scans at this facility use at least one of these dose optimization techniques: automated exposure control; mA and/or kV adjustment per patient size (includes targeted exams where dose is matched to clinical indication); or iterative reconstruction. Contrast material: OMNI 350; Contrast volume: 95 ml; Contrast route: INTRAVENOUS (IV); COMPARISON: No relevant prior studies available. RADIATION DOSE METRICS: Total DLP (mGy-cm): 605.14 FINDINGS: Pulmonary arteries: Normal. No pulmonary emboli. Aorta: Unremarkable. No aortic aneurysm. No aortic dissection. Lungs: A 7 x 2.8 x 2.5 cm left hilar mass is seen that encases the left pulmonary artery branches and cause some narrowing. No filling defect is seen. In addition dense consolidations are seen in the left upper lobe and left lower lobe with scattered infiltrates. Few scattered infiltrates are seen in the right lower lobe. A 1.8 cm X of pleural nodule is seen in the left upper chest anteriorly. Pleural space: A small right pleural effusion is present. Heart: Unremarkable. No cardiomegaly. No pericardial effusion. Lymph nodes: Large lymph node measuring 3.5 x 3 cm is present in the posterior mediastinum. Bones/joints: Unremarkable. No acute fracture. Soft tissues: Unremarkable. Other findings: Ascites is noted. Retroperitoneal adenopathy is present. Cirrhosis of the liver is seen with a questionable low-density mass in the left lobe of the liver. CT/CT angio chest PE protcl [id number] IMPRESSION: 1. The examination is negative for pulmonary embolism. Negative for aortic aneurysm or dissection. 2. A left hilar mass is present with posterior mediastinal adenopathy as described. 3. Dense consolidations and scattered infiltrates are seen bilaterally as described. 4. A small right pleural effusion is present. 5. Ascites is present. Retroperitoneal adenopathy is seen. Low-density lesion is present in the liver left lobe. CT of the abdomen pelvis with IV and oral contrast is suggested for complete evaluation. Radiation Dose CTDIVOL = (mGy): DLP = 605.14 (mGy-cm) Dictated By: Darnell Loving Signed By: Darnell Loving Signed Date/Time: 03/11/20403 DD/ 2 EKG Data^: EKG 1: Attestation: I personally reviewed and interpreted this EKG as follows: EKG Interpretation Date: 03/11/20 EKG interpretation time: 00:13 Interpretation: Normal sinus rhythm at 95 beats a minute, normal axis, no blocks, normal intervals, LVH, significant wandering baseline artifact. EKG 2: Attestation: I personally reviewed and interpreted this EKG as follows: EKG Interpretation Date: 03/11/20 EKG interpretation time: 02:21 Interpretation: Normal sinus rhythm at 82 beats a minute, normal axis, no blocks, normal intervals, no acute ST or T wave changes. Discharge Plan Discharge Patient Disposition: Admitted As Inpatient Clinical Impression: Acute alteration in mental status, Small cell lung cancer, Hypoglycemia Pneumonia Qualifiers: Pneumonia type: due to unspecified organism Laterality: bilateral Lung locati on: lower lobe of lung Qualified Code(s): J18.9 - Pneumonia, unspecified organism Condition: Stable Referrals: Zion Jha MD [Primary Care Provider] - Coding Level of Care Code ED Wire Bender Hand for gerardo Mendez
[2020-03-11 01:20] LABS: Slide Review Slide Review Perform
[2020-03-11 01:54] LABS: ABG PCO2 43.8 mmHg (35-45); ABG PH Result 7.35 (7.35-7.45); Arterial Blood Gas Hematocrit 32.3 % (37-47); Base Excess ABG -1.6 mmol/L (-2.0-2.0); Blood Gas Allen Test Pos; Blood Gas Sample Site Radial, right; Blood Gas Sample Type Arterial; HCO3 ABG 24.1 mmol/L (22-26); Oxygen Device VENT; PO2 ABG 74.3 mmHg (80.0-100.0)
[2020-03-11 01:57] LABS: ABG PCO2 50.2 mmHg (35-45); ABG PH Result 7.28 (7.35-7.45); Arterial Blood Gas Hematocrit 36.6 % (37-47); Base Excess ABG -3.8 mmol/L (-2.0-2.0); Blood Gas Allen Test Pos; Blood Gas Sample Site Radial, right; Blood Gas Sample Type Arterial; HCO3 ABG 23.4 mmol/L (22-26); Oxygen Device NC; PO2 ABG 71.4 mmHg (80.0-100.0)
--- NOTE | 2020-03-11 02:05 | ECG_ITS ---
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 Measurements Intervals [place] Rate: 82 P: 80 SD: 162 QRS: 43 QRSD: 85 T: 124 QT: 388 QTc: 455 Interpretive Statements SINUS RHYTHM WITH SINUS ARRHYTHMIA ST DEVIATION AND MODERATE T-WAVE ABNORMALITY, CONSIDER LATERAL ISCHEMIA [-0.1+ mV T WAVE IN I/aVL/V5/V6] No previous ECG available for comparison Electronically Signed On 03-11-2020 13:22:24 CDT by Jacob Bee M.D. [email or web address]/store/[id number]
[2020-03-11 02:18] LABS: Reflex Lactate Order REFLEX LACTIC ORDERD
[2020-03-11] MEDS: ipratropium-albuterol 3 mL Neb 9 ML INHALATION (02:20)
[2020-03-11 02:34] LABS: Bilirubin Urine Neg (Negative); Blood Urine Neg (Negative); Glucose Urine UA 2+ (Normal); Ketones Urine Negative (Negative); Leukocyte Esterase Urine Negative (Negative); Nitrate Urine Negative (Negative); Protein Urine 1+ (Negative); Urine Appearance SL Hazy (CLEAR); Urine Color Yellow (Yellow); Urobilinogen Urine Norm (Negative); pH Urine 5 (5-7)
[2020-03-11 02:35] LABS: RBC Urine 0-4 /hpf (0-2); WBC Urine 0-4 /hpf (0-5)
[2020-03-11 02:36] LABS: Amorphous Sediment Urine 1+ /hpf; Bacteria Urine TRACE /hpf; Mucus Urine TRACE /hpf; Transitional Epi Cells Urine 0-4 /hpf
[2020-03-11] MEDS: dextrose 50% syringe 50 mL 25 ML IVP (02:39)
[2020-03-11 02:41] LABS: Add Urine Culture? No; Other Crystals Urine AMM BIURATE /hpf
--- NOTE | 2020-03-11 02:50 | CTR_ITS ---
PROCEDURE INFORMATION: Exam: CT Angiography Chest With Contrast Exam date and time: 03/11/2020 3:08 AM Age: 69 years old Clinical indication: Abnormal findings; Abnormal diagnostic tests; Elevated d-dimer; Dyspnea; Additional info: Shortness of breath TECHNIQUE: Imaging protocol: Computed tomographic angiography of the chest with intravenous contrast. 3D rendering (Not supervised by radiologist): MIP and/or 3D reconstructed images were created by the technologist. Radiation optimization: All CT scans at this facility use at least one of these dose optimization techniques: automated exposure control; mA and/or kV adjustment per patient size (includes targeted exams where dose is matched to clinical indication); or iterative reconstruction. Contrast material: OMNI 350; Contrast volume: 95 ml; Contrast route: INTRAVENOUS (IV); COMPARISON: No relevant prior studies available. RADIATION DOSE METRICS: Total DLP (mGy-cm): 605.14 FINDINGS: Pulmonary arteries: Normal. No pulmonary emboli. Aorta: Unremarkable. No aortic aneurysm. No aortic dissection. Lungs: A 7 x 2.8 x 2.5 cm left hilar mass is seen that encases the left pulmonary artery branches and cause some narrowing. No filling defect is seen. In addition dense consolidations are seen in the left upper lobe and left lower lobe with scattered infiltrates. Few scattered infiltrates are seen in the right lower lobe. A 1.8 cm X of pleural nodule is seen in the left upper chest anteriorly. Pleural space: A small right pleural effusion is present. Heart: Unremarkable. No cardiomegaly. No pericardial effusion. Lymph nodes: Large lymph node measuring 3.5 x 3 cm is present in the posterior mediastinum. Bones/joints: Unremarkable. No acute fracture. Soft tissues: Unremarkable. Other findings: Ascites is noted. Retroperitoneal adenopathy is present. Cirrhosis of the liver is seen with a questionable low-density mass in the left lobe of the liver. CT/CT angio chest PE protcl [id number] IMPRESSION: 1. The examination is negative for pulmonary embolism. Negative for aortic aneurysm or dissection. 2. A left hilar mass is present with posterior mediastinal adenopathy as described. 3. Dense consolidations and scattered infiltrates are seen bilaterally as described. 4. A small right pleural effusion is present. 5. Ascites is present. Retroperitoneal adenopathy is seen. Low-density lesion is present in the liver left lobe. CT of the abdomen pelvis with IV and oral contrast is suggested for complete evaluation. Radiation Dose CTDIVOL = (mGy): DLP = 605.14 (mGy-cm)
[2020-03-11 03:06] LABS: Lactic Acid level (Lactate) 2.3 mmol/L (0.5-2.2)
[2020-03-11 03:08] LABS: Troponin 5 2HR 42.75 ng/L (0-10); Troponin 5 2HR Delta 0.75 ABS# (0-10)
[2020-03-11] MEDS: dextrose 5%-sod chloride 0.45% 1,000 ML 125 ML IV (03:08)
[2020-03-11] MEDS: iohexol 350 mg/mL 100 mL Btl IV (03:33)
--- NOTE | 2020-03-11 04:13 | PC.NURSE ---
50 ml Dextrose 50% not given due to duplicate order for same.
--- NOTE | 2020-03-11 04:28 | PC.NURSE ---
Finger stick blood glucose 71. Physician notified. Physician verbal order to titrate D5% up to 150 mls/hr.
--- NOTE | 2020-03-11 04:39 | PM.HP ---
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 Westbrook for chemotherapy, on steroids secondary to extensive brain mets has been having difficulty with her coordination, balance and cognition presented to the hospital after she was found on the floor by the family member. EMS was called to bring her to the hospital. Her blood sugar was 32mg/dl she received 2 Amps of D50 followed by D5 half-normal saline infusion which improved her mentation. Patient initially was confused as per the report from the ER physician but that time evaluation she was able to tell me her full name, date of . She is stating that she has no memory of any syncopal event or seizure-like activities, she is denying chest pain but endorsing shortness of breath. She is stating that the reason she is in the hospital is because of her shortness of breath. She takes Tresiba 40 units every day, her appetite is poor especially after chemotherapy she is not eating properly. She is compliant with her medications which include Metformin and a beta-temo agent as well. Of note, she was sent to the [facility] for coronary angiogram because of distal left main disease along complex right coronary artery disease, at that time left hilar mass was identified. She has had right carotid endarterectomy, CVA with subsequent cognitive impairment. Diagnosis in the ER revealed sepsis with pneumonia, no significant troponin delta, no EKG changes for ischemia or infarction, I do believe t wave inversions in lateral leads is secondary to LVH, currently patient is not endorsing chest pain, lactic acid 4 which improved to 2.3, I have requested prolactin level, she has received vancomycin and Zosyn in the ER Home medications: Simvastatin 5 mg at bedtime Metoprolol tartrate 100 mg half tablet daily Plavix 75 mg daily esCitalopram 20 mg daily Ferrous sulfate nightly 25 mg daily Famotidine 20 mg daily Metformin 500 mg twice a day Magnesium oxide 400 mg once daily Tresiba 40 units every morning Dexamethasone 4 mg 3 times a day Zofran 4 mg 6 hours as needed Hydrocodone 5-325 mg every 6 hours as needed Review of Systems Const: Reports: change in appetite, fatigue and malaise; Denies: fever(s) or body aches Eyes: Denies: change in vision ENMT: Denies: throat pain Card: Reports: dyspnea on exertion and orthopnea; Denies: chest pain Resp: Reports: dyspnea GI: Reports: abdominal pain; Denies: nausea or diarrhea : Denies: flank pain Musc: Denies: neck pain Skin/Breast: Reports: new lesions, lesions and changes in skin color Neuro: Reports: lack of coordination and frequent falls; Denies: headache(s) Psych: Reports: memory loss Endo: Denies: polyuria Estevan/Lymph: Reports: easy bruising All/Imm: Denies: urticaria Medications/Allergies Allergies Allergy/AdvReac Type Severity Reaction Status Date / Time No Known Allergies Allergy Verified 03/11/20 00:02 PFSH Acute PFSH: Medical History Brain metastases Chronic kidney disease COPD (chronic obstructive pulmonary disease) Coronary artery disease CVA (cerebral vascular accident) Port-A-Cath in place Small cell lung cancer Thyroid nodule Type 2 diabetes mellitus Surgical History H/O thyroidectomy History of appendectomy History of bronchoscopy Stented coronary artery Family History Other No significant family history Social History Smoking and tobacco status: former smoker Quit status (tobacco): has quit using tobacco Former quit date comment: 2018, 74-lehd-blyf smoking history Alcohol intake: never Marital status: Vitals/I&O/Wt Last Vital Signs Temp 98.1 F 03/11/20 00:03 Pulse 76 03/11/20 04:15 Resp 18 03/11/20 04:15 BP 90/49 03/11/20 04:15 Pulse Ox 97 03/11/20 04:15 03/10/20 03/10/20 03/11/20 14:59 22:59 06:59 Intake Total 591.667 / 591.667 Balance 591.667 / 591.667 Weight last 48 hrs Weight 68.039 kg Physical Exam Narrative: EXAM NARRATIVE: elderly female, appears more than stated age Currently not in any active distress on BiPAP Able to tell me her full name, date of She is not oriented to place, awake oriented to person and time Able to tell me brief HPI EOMI, PERRLA Multiple petechiae and bruises of anterior abdominal wall, Distended abdomen, tenderness on deep palpation in right upper quadrant area Hepatomegaly, ascites positive, bowel sound present Active wheezing bilaterally, expiratory, no active respiratory distress, Due to active wheezing very hard to listen to her heart sounds I did not appreciate any carotid bruit Lower extremity dry, no edema gangrene also noted Cognitive impairment Patient is able to follow simple commands Data : 03/11/20 00:20 03/11/20 00:20 Micro: Microbiology 03/11/20 00: Blood Culture - Preliminary Blood SPECIMEN COLLECTED 03/11/20 00: Blood Culture - Preliminary Blood SPECIMEN COLLECTED A&P Assessment and plan (1) Acute alteration in mental status: Status: Acute (2) Pneumonia: Status: Acute Qualifiers: Laterality: bilateral Lung location: lower lobe of lung Pneumonia type: due to unspecified organism Qualified Code(s): J18.9 - Pneumonia, unspecified organism (3) Altered mental status: Status: Acute (4) Hypoglycemia: Status: Acute (5) Brain metastases: Status: Acute (6) Small cell lung cancer: Status: Acute (7) Abnormal transaminases: Status: Acute (8) Sepsis: Status: Acute Additional A&P Information Altered mental status secondary to hypoglycemic event Patient is endorsing poor appetite, anorexia, since initiation of chemotherapy She is taking Tresiba 40 units and taking beta-temo Discontinue Metformin, Tresiba, beta-temo at this point, would use low-dose sliding scale, monitor her sugar Current blood sugar is 90s/p 2 amps of D50, continue D5 half-normal saline fluid resuscitation We will check A1c level Sepsis secondary to pneumonia Sepsis criteria met with leukocytosis, tachypnea, high lactic acid She is immunocompromised would cover with vancomycin, Levaquin and Zosyn for now, no neutropenia noticed, will check nares MRSA Sputum culture, blood culture, urine antigens Small cell lung cancer with brain metastases Currently undergoing brain radiotherapy, started chemotherapy under supervision of Dr. Westbrook Continue dexamethasone because of extensive brain metastases High BNP: however clinically does not look fluid overloaded, considering sepsis and indication for fluid resuscitation due to hyperglycemia I would avoid giving any diuretics at this point, PE ruled out, high D-dimer most likely secondary to cancer etiology Abnormal transaminases most likely secondary to liver metastases/cirrhosis Hepatomegaly with ascites Hypocalcemia: Corrected calcium within normal range Abnormal troponin, established coronary disease history of LAD, right coronary artery disease, patient actively chest pain-free, no ischemic infarct changes on EKG, LVH with left-ventricular strain evident on EKG, COPD: Normal pH, currently doing well on BiPAP however she has active wheezing CODE STATUS: Full code: She carries guarded prognosis, kindly readdress goals of care with the family in the morning Cardiac diet With avoid DVT prophylaxis because of extensive brain metastases, would use SCDs for DVT prophylaxis for now Attestations Medical Necessity Statement*: Anticipating stay in the hospital to cross more than 2 midnights, sepsis with pneumonia with underlying immunocompromised state Time Spent in Patient Care: (>than 50% of time spent in counselling and/or direct pt care on unit). 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
--- NOTE | 2020-03-11 05:05 | PC.NURSE ---
Finger stick blood sugar 96
[2020-03-11 05:21] LABS: Prolactin 8.62 ng/mL (4.8-23.3)
[2020-03-11 06:11] LABS: Glucose Point of Care 96 mg/dL (70-110)
[2020-03-11 06:11] LABS: Glucose Point of Care 71 mg/dL (70-110)
[2020-03-11 06:11] LABS: Glucose Point of Care 81 mg/dL (70-110)
[2020-03-11 06:11] LABS: Glucose Point of Care 100 mg/dL (70-110)
[2020-03-11 06:11] LABS: Glucose Point of Care 119 mg/dL (70-110)
[2020-03-11 06:11] LABS: Glucose Point of Care 34 mg/dL (70-110)
[2020-03-11 06:11] LABS: Glucose Point of Care 96 mg/dL (70-110)
[2020-03-11 07:15] LABS: Troponin 5 6HR 41.39 ng/L (0-10)
[2020-03-11 07:16] LABS: Troponin 5 6HR Delta -0.61 ng/L (0-12)
[2020-03-11 08:26] LABS: Glucose Point of Care 66 mg/dL (70-110)
[2020-03-11] MEDS: dextrose 5%-sod chloride 0.45% 1,000 ML 75 ML IV ×2 (08:54→21:40)
--- NOTE | 2020-03-11 09:01 | PC.CHAP ---
Pastoral Care Encounter/Spiritual Assessment Type of Contact [] Declined profiling machine set up operator tool visit [] Patient/Family/Request visit [] Outpatient visit [] Follow-up visit [] Physician referral [] Code/Alert [] Routine visit [] Staff referral [] Actively dying [] Patient sleeping [] Family support [] [] Out of room [] Palliative care [] [] Receiving care in room [] Pre-surgical visit [] Trauma [] Long length of stay [] ICU visit [] Other: Relational/Emotional Strength [] Patient feels connected with others/family/visitors/staff [] Distress [] Loneliness/isolation [] Abandonment Spirituality of Patient [] Person of May [] Attends Yazidism of their May [] Believes in Prayer [] Reads Bible or Mandaeism materials [] There are Spiritual issues to be addressed Carbonation Equipment Operator Interventions [] Prayer [] Active listening [] Non-anxious presence [] Spiritual/emotional support [] Crisis/trauma care [] Spiritual counseling [] Bereavement support [] Provided bereavement packet [] Provided Bible/devotional materials [] Provided toy/stuffed animal, coloring book to patient or family member [] Provided Communion [] Anointing/[place] [] Salvation [] Completed spiritual assessment [] Other: Impact on Illness or Injury [] Angry [] Fearful [] Anxious [] Often cries [] Exhaustion [] Unable to work [] Unable to attend alevism [] Unable to walk/stand [] Unable to read [] Unable to drive [] Unable to eat/drink [] Unable to sleep [] Unable to be with family [] Patient intubated [] Other: Summary patient with doc Time spent with patient
[2020-03-11 10:13] LABS: Glucose Point of Care 77 mg/dL (70-110)
[2020-03-11 10:13] LABS: Glucose Point of Care 49 mg/dL (70-110)
[2020-03-11] MEDS: levoFLOXacin 750 mg Tablet PO (11:12)
[2020-03-11] MEDS: sennosides-docusate Tablet 1 TAB PO ×2 (11:12→17:43)
[2020-03-11] MEDS: pantoprazole DR 40 mg Tablet PO (11:13)
[2020-03-11] MEDS: clopidogrel 75 mg Tablet PO (11:13)
[2020-03-11] MEDS: dexamethasone 4 mg Tablet PO ×3 (11:15→21:35)
--- NOTE | 2020-03-11 11:29 | CTR_ITS ---
PROCEDURE INFORMATION: Exam: CT Abdomen And Pelvis With Contrast Exam date and time: 03/11/2020 1:24 PM Age: 69 years old Clinical indication: Abdominal pain; Prior surgery; Surgery type: Appy, stent, port; Additional info: Metastatic lung cancer, lesion in the liver TECHNIQUE: Imaging protocol: Computed tomography of the abdomen and pelvis with intravenous contrast. Radiation optimization: All CT scans at this facility use at least one of these dose optimization techniques: automated exposure control; mA and/or kV adjustment per patient size (includes targeted exams where dose is matched to clinical indication); or iterative reconstruction. Contrast material: OMNIPAQUE; Contrast volume: 95 ml; Contrast route: INTRAVENOUS (IV); COMPARISON: No relevant prior studies available. RADIATION DOSE METRICS: Total DLP (mGy-cm): 1063 FINDINGS: Lungs: Interstitial and multifocal left-sided airspace disease. Small pleural effusions, right greater than left. Liver: Lobulated morphology of the liver. Poorly defined hypodense lesion in the left hepatic lobe, with approximate measurements of 4.2 x 2.5 by 3.4 cm, which would be suspicious for metastatic disease in the setting of reported metastatic lung cancer. Gallbladder and bile ducts: Poorly defined hyperdensity in the gallbladder fundus which can be better evaluated with ultrasound, as clinically indicated. Pancreas: No pancreatic mass or ductal dilatation. Spleen: No splenomegaly. Adrenals: 1.6 cm hypodense left adrenal nodular lesions suggesting metastasis. Kidneys and ureters: Normal renal morphology. No hydronephrosis. Stomach and bowel: Mild gastroduodenal wall thickening. Mild small bowel dilatation without a transition zone. Copious stool, in a pattern of constipation. Appendix: Appendix not visualized. Intraperitoneal space: Infiltration of mesenteric fat and intraperitoneal fluid, suspicious for metastatic disease. Vasculature: Extensive vascular calcification. No abdominal aortic aneurysm. Lymph nodes: Multiple enlarged hypodense lymph nodes in the celiac, portalcaval, retrocrural, and retroperitoneal regions suggesting malignant lymphadenopathy. This includes 3.9 by 2.5 by 3.9 cm portacaval, 5.0 x 3.6 by 5.7 cm retrocaval, and 7.0 by 6.3 by 3.3 cm celiac lymph nodes. Urinary bladder: Normal morphology of the contrast filled bladder. Reproductive: Endocervical air. Bones/joints: Osteopenia, degenerative change, and Schmorl's nodes. Soft tissues: Prominent subcutaneous edema. CT/CT abdomen pelvis w con* [id number] IMPRESSION: 1. Poorly defined hypodense lesion in the left hepatic lobe, with approximate measurements of 4.2 x 2.5 by 3.4 cm, which would be suspicious for metastatic disease in the setting of reported metastatic lung cancer. 2. 1.6 cm hypodense left adrenal nodular lesions suggesting metastasis. 3. Multiple enlarged hypodense lymph nodes in the celiac, portalcaval, retrocrural, and retroperitoneal regions suggesting malignant lymphadenopathy. 4. Infiltration of mesenteric fat and intraperitoneal fluid, suspicious for metastatic disease. 5. Additional findings as described above. Radiation Dose CTDIVOL = (mGy): DLP = 1063 (mGy-cm)
--- NOTE | 2020-03-11 11:49 | PM.PN ---
Subjective Subjective: Interval history: Patient seen and evaluated this morning. At time of exam she reported no abdominal pain or chest pain. Discussed with patient plan to continue to work on blood sugars and holding off on her diabetic medications. Discussed with patient concern for lesion in the liver with plan for CT scan of the abdomen and pelvis. Discussed with patient's sister over the phone, made her aware of concern for pneumonia, lesion in the liver and hypoglycemia. She verbalized understanding, questions answered Vitals/I&O/Wt Last Vital Signs Temp 99.3 F 03/11/20 11:45 Pulse 78 03/11/20 11:45 Resp 18 03/11/20 11:45 BP 119/65 03/11/20 11:45 Pulse Ox 98 03/11/20 11:45 03/10/20 03/11/20 03/11/20 22:59 06:59 14:59 Intake Total 591.667 / 591.667 Balance 591.667 / 591.667 Weight last 48 hrs Weight 68.039 kg Physical Exam Const: COMMON NORMALS: patient oriented x3 and alert GENERAL APPEARANCE: cooperative, ill appearing and frail appearing ORIENTATION/CONSCIOUSNESS: Yes awake, Yes oriented to person, Yes oriented to place and Yes oriented to time HENMT: COMMON NORMALS: normocephalic and atraumatic HEAD & SCALP: normocephalic and atraumatic Eye: COMMON NORMALS: Equal, round and reactive pupils present PUPIL: Yes Equal, round and reactive pupils present Neck/C-Spine: COMMON NORMALS: supple GENERAL: Yes normal visual inspection Resp: COMMON NORMALS: normal respiratory effort AUSCULTATION: wheezes OTHER: Diminished breath sounds bilaterally with prolonged expiratory phase and expiratory wheezing, crackles on the right Cardio: COMMON NORMALS: regular rate and regular rhythm RATE: regular rate RHYTHM: regular rhythm GI: COMMON NORMALS: Soft to palpation and non-tender INSPECTION: No abdominal distension PALPATION: Yes Soft to palpation Extremity: COMMON NORMALS: no clubbing, cyanosis or edema and no calf tenderness Neuro: COMMON NORMALS: patient oriented x3, CN's II-XII intact bilaterally, moves all extremities and no focal motor deficits SENSORIUM/ORIENTATION: Yes alert, Yes oriented to person, Yes oriented to place and Yes oriented to time SPEECH: speech normal Psych: COMMON NORMALS: cooperative Skin: COMMON NORMALS: no rashes or lesions noted GENERAL SKIN EXAM: no rashes or lesions noted Data : 03/11/20 00:20 03/11/20 00:20 Micro: Microbiology 03/11/20 00:20 Blood Culture - Preliminary Blood SPECIMEN COLLECTED 03/11/20 00:20 Blood Culture - Preliminary Blood SPECIMEN COLLECTED A&P Assessment and plan (1) Acute alteration in mental status: Secondary to hypoglycemia Continue to monitor blood sugars closely Hold home metformin and Tresiba Continue to provide D5 NS Status: Acute (2) Pneumonia: Continue on broad-spectrum antibiotic coverage. Repeat chest x-ray in the morning Status: Acute Qualifiers: Laterality: bilateral Lung location: lower lobe of lung Pneumonia type: due to unspecified organism Qualified Code(s): J18.9 - Pneumonia, unspecified organism (3) Hypoglycemia: Patient hypoglycemic with blood glucose in the 30s on arrival to the ED by EMS. She has been given 2 A of D50 followed by D5 half-normal saline infusion. Continues on D5 half-normal saline. Continue to encourage diet. Continue to hold on Tresiba and metformin Status: Acute (4) Brain metastases: Discussed with oncologist, Dr. Westbrook this morning. Plan to restart radiation tomorrow Status: Acute (5) Small cell lung cancer: Followed by Dr. Westbrook Planned for radiation currently to the brain, future plan for chemotherapy Continue on dexamethasone due to extensive brain metastases. Status: Acute (6) Abnormal transaminases: With concern for liver lesion, question if this is related to malignancy We will further evaluate with CT scan of the abdomen and pelvis with IV and oral contrast today Status: Acute (7) Sepsis: Status: Acute Additional A&P Information Hypocalcemia: Corrected calcium within normal range Abnormal troponin, established coronary disease history of LAD, right coronary artery disease, denies any active chest pain. 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
[2020-03-11] MEDS: sodium chloride 0.9% 500 ML IV (12:19)
[2020-03-11] MEDS: iohexol 300 mg/mL 50 mL Btl PO (14:26)
[2020-03-11] MEDS: iohexol 300 mg/mL 100 mL Btl IV (14:27)
--- NOTE | 2020-03-11 15:36 | PC.NURSE ---
SKIN TEAR THIS NURSE WALKED PATIENT TO THE BATHROOM AND NOTICED SHE HAD A SKIN TEAR ON HER LEFT ARM. PATIENT WAS COMPLAINING THAT THIS HURT. THIS NURSE GOT A TELFA AND KERLIX AND DRESSED WOUND.
[2020-03-11 17:18] LABS: Glucose Point of Care 52 mg/dL (70-110)
[2020-03-11] MEDS: HYDROcodone-acetaminophen 5-325 mg Tablet 1 TAB PO (17:52)
[2020-03-11 20:52] LABS: Glucose Point of Care 125 mg/dL (70-110)
[2020-03-11 21:53] LABS: Glucose Point of Care 90 mg/dL (70-110)
[2020-03-12] VITALS (17 sets, daily range): BP systolic 90–153; BP diastolic 56–81; PULSE 84–131; RESP 18–29; TEMP 35.9–37.1; O2SAT 93–100
[2020-03-12] MEDS: piperacillin-tazobactam 3.375 GM in sodium chloride 0.9% (plus) 50 ML IV ×2 (00:47→12:39)
[2020-03-12 04:20] LABS: Glucose Point of Care 50 mg/dL (70-110)
[2020-03-12 05:39] LABS: Hematocrit 24.5 % (37.0-47.0); Hemoglobin 7.2 g/dL (11.5-15.3); Mean Corpuscular HGB Conc 29.4 g/dL (30.0-36.0); Mean Corpuscular Hemoglobin 27.9 pg (28.0-34.0); Mean Platelet Volume 11.3 fL (7.4-10.4); Platelet Count 70 10^3/cmm (130-400); Red Blood Count 2.58 10^6/uL (4.1-5.3); Red Cell Distribution Width 17.1 % (12.1-15.1); White Blood Count 5.6 10^3/uL (4.0-10.0)
[2020-03-12 05:53] LABS: Lactate (Lactic Acid level) 1.9 mmol/L (0.5-2.2)
[2020-03-12 06:11] LABS: Alanine Aminotransferase 38 U/L (0-33); Albumin Level 2.1 g/dL (3.5-5.2); Alkaline Phosphatase 84 IU/L (35-105); Anion Gap 13.9 (5-19); Aspartate Amino Transferase 33 U/L (0-32); Blood Urea Nitrogen 22 mg/dL (8-23); Calcium 7.2 mg/dL (8.5-10.5); Carbon Dioxide 22 mmol/L (22-29); Chloride 106 mmol/L (98-107); Globulin 2.8 g/dL (1.3-4.6); Glomerular Filtration Rate 70.9 mL/min (90-130); Glucose 71 mg/dL (65-115); Osmolality Calculated 288 mOsm/kg (285-295); Potassium 3.9 mmol/L (3.5-5.1); Sodium 138 mmol/L (136-145); Total Bilirubin 0.2 mg/dL (0.15-1.2); Total Protein 4.9 g/dL (6.6-8.7)
[2020-03-12 06:45] LABS: Slide Review Slide Review Perform
[2020-03-12 06:49] LABS: Absolute Neutrophil 5.2 10^3/cmm (1.4-6.5); Absolute Segmented Neutrophil 3.2 10/cmm (1.6-7.1); Lymphocytes 5 %; Monocytes Absolute 0.1 10^3/cmm (0.1-0.6); Platelet Estimate Decreased (Normal); Segmented Neutrophils 57 %; Total Cells Counted 100 (0-100)
[2020-03-12 07:02] LABS: Eosinophils 0 %
--- NOTE | 2020-03-12 07:16 | XRR_ITS ---
PROCEDURE INFORMATION: Exam: XR Chest, 1 View Exam date and time: 03/12/2020 7:51 AM Age: 69 years old Clinical indication: Chest pain; Type not specified; Patient HX: PT intubated TECHNIQUE: Imaging protocol: XR of the chest Views: 1 view. COMPARISON: CR XR chest 1V portable [id number] 03/11/2020 12:13 AM FINDINGS: Tubes, catheters and devices: Endotracheal tube not visualized. Lungs: Patchy alveolar airspace consolidation within the left lower lobe. Soft tissue prominence in the left hilum/suprahilar region. Pleural space: Unremarkable. No pleural effusion. No pneumothorax. Heart/Mediastinum: Unremarkable. No cardiomegaly. Bones/joints: Unremarkable. XR/XR chest 1V portable [id number] IMPRESSION: 1. Patchy alveolar airspace consolidation within the left lower lobe. Soft tissue prominence in the left hilum/suprahilar region. 2. Endotracheal tube not visualized.
--- NOTE | 2020-03-12 07:16 | ECG_ITS ---
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 Measurements Intervals [place] Rate: 119 P: 73 RI: 145 QRS: 23 QRSD: 86 T: 193 QT: 299 QTc: 421 Interpretive Statements SINUS TACHYCARDIA MARKED ST DEPRESSION, CONSIDER SUBENDOCARDIAL INJURY [0.2+ mV ST DEPRESSION] Compared to ECG 03/12/2020 07:31:39 No significant changes Electronically Signed On 03-13-2020 20:26:26 CDT by Jacob Bee M.D. [id number]
[2020-03-12] MEDS: nitroglycerin 0.4 mg sublingual Tablet SUBLINGUAL (07:31)
[2020-03-12 07:40] LABS: Troponin(5th) Baseline 34 ng/L (0-10)
[2020-03-12 07:48] LABS: Glucose Point of Care 96 mg/dL (70-110)
[2020-03-12] MEDS: ipratropium-albuterol 3 mL Neb INHALATION ×2 (07:51→14:19)
[2020-03-12 08:22] LABS: Troponin 5 2HR 37.19 ng/L (0-10); Troponin 5 2HR Delta 3.19 ABS# (0-10)
--- NOTE | 2020-03-12 09:16 | ECG_ITS ---
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 Measurements Intervals [place] Rate: 133 P: 85 MD: 156 QRS: 60 QRSD: 98 T: 237 QT: 280 QTc: 417 Interpretive Statements SINUS TACHYCARDIA MARKED ST DEPRESSION, CONSIDER SUBENDOCARDIAL INJURY [0.2+ mV ST DEPRESSION] Compared to ECG 03/11/2020 02:21:36 ST (T wave) deviation now present Sinus rhythm no longer present Sinus arrhythmia no longer present T-wave abnormality no longer present Possible ischemia no longer present Electronically Signed On 03-13-2020 20:53:03 CDT by Jacob Bee M.D. [id number]
[2020-03-12] MEDS: FUROsemide 10 mg/mL SDV 4mL 40 MG IVP (09:19)
[2020-03-12] MEDS: sennosides-docusate Tablet 1 TAB PO ×2 (10:11→19:39)
[2020-03-12] MEDS: pantoprazole DR 40 mg Tablet PO (10:11)
[2020-03-12] MEDS: levoFLOXacin 750 mg Tablet PO (10:11)
[2020-03-12] MEDS: dexamethasone 4 mg Tablet PO ×3 (10:11→22:59)
[2020-03-12 10:43] LABS: Glucose Point of Care 77 mg/dL (70-110)
[2020-03-12 11:27] LABS: Hemoglobin 8.3 g/dL (11.5-15.3)
[2020-03-12 12:10] LABS: Troponin 5 6HR 98.15 ng/L (0-10)
[2020-03-12 12:16] LABS: Troponin 5 6HR Delta 64.15 ng/L (0-12)
--- NOTE | 2020-03-12 12:38 | PC.NURSE ---
GAVE ORDERS TO HOLD FLUIDS AND PLAVIX AT THIS TIME
--- NOTE | 2020-03-12 13:16 | ECG_ITS ---
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 Measurements Intervals [place] Rate: 123 P: 86 MT: 150 QRS: 38 QRSD: 82 T: 184 QT: 309 QTc: 442 Interpretive Statements SINUS TACHYCARDIA MARKED ST DEPRESSION, CONSIDER SUBENDOCARDIAL INJURY [0.2+ mV ST DEPRESSION] Compared to ECG 03/12/2020 10:15:04 No significant changes Electronically Signed On 03-13-2020 20:51:35 CDT by Jacob Bee M.D. [id number]
--- NOTE | 2020-03-12 15:17 | PC.RESP ---
Pulmonary Rehab information sent to patient.
[2020-03-12 16:15] LABS: Glucose Point of Care 206 mg/dL (70-110)
--- NOTE | 2020-03-12 16:42 | PM.PN ---
Subjective Subjective: Interval history: Patient resting in bed at time of exam. Had an episode of chest pain this morning that occurred at rest. Appeared to be fluid overloaded therefore given IV Lasix. Discussion with patient about her CT scan results of her abdomen and pelvis showing concern for metastatic disease. Discussed with her about her known coronary artery disease requiring further work-up. She stated that she has not had any stents they were holding off until further treatment with her malignancy. Discussed with her about her resuscitation status and she stated that she did not want to answer that my kids would know Called and discussed with patient's sister Kylie, son Alvin, and son Lorenzo. Called to reach her daughter x2 with no answer. Discussed concern for poor prognosis and concern for patient having non-ST elevation NE. Discussed patient's wishes regarding her resuscitation status to be discussed with her children. Patient's children to come in and discussed with patient this evening. Vitals/I&O/Wt Last Vital Signs Temp 98.7 F 03/12/20 16:28 Pulse 117 H 03/12/20 16:28 Resp 18 03/12/20 16:28 BP 90/56 03/12/20 16:28 Pulse Ox 97 03/12/20 16:28 03/12/20 03/12/20 03/12/20 06:59 14:59 22:59 Intake Total 110 / 1167.5 120 / 120 0 / 120 Output Total 625 / 625 Balance 110 / 814.5 -505 / -505 0 / -505 Weight last 48 hrs Weight 68.039 kg Physical Exam Const: COMMON NORMALS: patient oriented x3 and alert GENERAL APPEARANCE: cooperative, ill appearing and frail appearing ORIENTATION/CONSCIOUSNESS: Yes awake, Yes oriented to person, Yes oriented to place and Yes oriented to time HENMT: COMMON NORMALS: normocephalic and atraumatic HEAD & SCALP: normocephalic and atraumatic Eye: COMMON NORMALS: Equal, round and reactive pupils present PUPIL: Yes Equal, round and reactive pupils present Neck/C-Spine: COMMON NORMALS: supple GENERAL: Yes normal visual inspection Resp: COMMON NORMALS: normal respiratory effort AUSCULTATION: wheezes OTHER: Diminished breath sounds bilaterally with prolonged expiratory phase and expiratory wheezing, crackles on the right Cardio: COMMON NORMALS: regular rate and regular rhythm RATE: regular rate RHYTHM: regular rhythm GI: COMMON NORMALS: Soft to palpation and non-tender INSPECTION: No abdominal distension PALPATION: Yes Soft to palpation Extremity: COMMON NORMALS: no clubbing, cyanosis or edema and no calf tenderness Neuro: COMMON NORMALS: patient oriented x3, CN's II-XII intact bilaterally, moves all extremities and no focal motor deficits SENSORIUM/ORIENTATION: Yes alert, Yes oriented to person, Yes oriented to place and Yes oriented to time SPEECH: speech normal Psych: COMMON NORMALS: cooperative Skin: COMMON NORMALS: no rashes or lesions noted GENERAL SKIN EXAM: no rashes or lesions noted Data : 03/12/20 11:03 03/12/20 05:11 Micro: Microbiology 03/12/20 11:06 Blood Culture - Preliminary Blood SPECIMEN COLLECTED 03/12/20 11:03 Blood Culture - Preliminary Blood SPECIMEN COLLECTED 03/12/20 00:31 Legionella Urinary Antigen - Final Urine,Clean Catch 03/11/20 00:20 Blood Culture - Preliminary Blood NEGATIVE TO DATE 03/11/20 00:20 Blood Culture - Preliminary Blood Gram Negative Rods A&P Assessment and plan (1) Acute alteration in mental status: Secondary to hypoglycemia Mentation appears to be improved today Hypoglycemia stable Status: Acute (2) Pneumonia: We will de-escalate antibiotic coverage today and continue on Levaquin Status: Acute Qualifiers: Laterality: bilateral Lung location: lower lobe of lung Pneumonia type: due to unspecified organism Qualified Code(s): J18.9 - Pneumonia, unspecified organism (3) Hypoglycemia: Continue to hold on Tresiba and metformin Status: Acute (4) Brain metastases: Discussed with oncologist, Dr. Westbrook this morning. Status: Acute (5) Small cell lung cancer: Followed by Dr. Westbrook Planned for radiation currently to the brain, future plan for chemotherapy Continue on dexamethasone due to extensive brain metastases. Status: Acute (6) Abnormal transaminases: With concern for liver lesion, question if this is related to malignancy CT scan of the abdomen and pelvis shows hypodense lesion in the left hepatic lobe 4.2 x 2.5 x 3.4 cm concerning for metastatic lesion Status: Acute (7) Sepsis: Status: Acute Additional A&P Information Hypocalcemia: Corrected calcium within normal range Non-ST elevation [place]: Consult to cardiology today. Patient had drop in hemoglobin and platelets. Patient has known coronary artery disease but has not had any recent intervention due to work-up and treatment for malignancy. Discussed with patient's family goals and plan of care. They are to discuss further. Hospice was offered and they have been discussing and will make further decision today. We will follow-up with cardiology recommendations. Thrombocytopenia: Appears to be new, recheck peripheral smear and recheck labs tomorrow hold any anticoagulation Anemia: No evidence of any active bleeding will hold off on any anticoagulation 1 unit of packed red blood cells ordered for transfusion, serial H&H COPD: Oxygen per protocol, respiratory therapy to assess and treat CODE STATUS: Full code, discussed with sister, will reach out to daughter when she is off of work Diet: Cardiac DVT ppx: SCDs, With avoid pharmacologic DVT prophylaxis because of extensive brain metastases Attestations Medical Necessity Statement*: Patient requires continued hospitalization due to pneumonia, metastatic lung cancer, non-ST elevation NE. Coding Level of Care Code Acute Captain Airline Pilot for Xu Mendez Diagnoses Acute alteration in mental status R41.82 Pneumonia J18.9 Laterality: bilateral Lung location: lower lobe of lung Pneumonia type: due to unspecified organism Hypoglycemia E16.2 Brain metastases C79.31 Small cell lung cancer C34.90 Abnormal transaminases R74.8 Sepsis A41.9
[2020-03-12] MEDS: HYDROcodone-acetaminophen 5-325 mg Tablet 1 TAB PO (17:02)
[2020-03-12] MEDS: sodium chloride 0.9% (100 ml) 100 ML (19:10)
[2020-03-12 19:18] LABS: LAB Peripheral Smear Sent for Review
[2020-03-12] MEDS: morphine 4 mg/mL SDV 1 mL 2 MG IVP (19:55)
[2020-03-12 20:48] LABS: Hematocrit 26.5 % (37.0-47.0); Hemoglobin 8.3 g/dL (11.5-15.3)
--- NOTE | 2020-03-12 22:27 | PC.NURSE ---
This RN spoke with Pt's family and educated them on Pt becoming an AND. Family verbalized that they would like to make Pt an AND and Pt verbalized this as well. Reported this to . Resuscitation order has been changed to AND. Pt's family verbalized that they would like to use [facility] when Pt is discharged.
--- NOTE | 2020-03-12 22:34 | P.CONIM_ITS ---
Providers/Reason For Consult Consulting Physican/Specialty*: Jacob Bee MD/Cardiology Reason for Consult*: Troponin elevation/known coronary artery disease Attending Physician: Betty Quezada DO Primary Care Provider: Zion Jha MD History of Present Illness History of Present Illness Shanae Seth is a 69 year old female with PMH small cell lung cancer with extensive brain metastases currently undergoing whole brain radiotherapy, following up with Dr. Westbrook for chemotherapy, on steroids secondary to extensive brain mets has been having difficulty with her coordination, balance and cognition presented to the hospital after she was found on the floor by the family member. Of note, she has known coronary artery disease with distal left main disease along complex right coronary artery disease diagnosed at [facility], at that time left hilar mass was identified. She has had right carotid endarterectomy, CVA with subsequent cognitive impairment. During current admission, patient is found to have liver mets. Cardiology was consulted as patient had episode of chest pain with elevation of troponin from 41 to 98. No acute changes on EKG. Patient currently denies chest pain. She has significant abdominal pain. Patient's Hgb and platelets dropped significantly today. Hgb is 8.3 and platelet count is 70. Review of Systems Const: Reports: change in appetite, fatigue and malaise; Denies: fever(s) or body aches Eyes: Denies: change in vision ENMT: Denies: throat pain Card: Reports: dyspnea on exertion and orthopnea; Denies: chest pain Resp: Reports: dyspnea GI: Reports: abdominal pain; Denies: nausea or diarrhea : Denies: flank pain Musc: Denies: neck pain Skin/Breast: Reports: new lesions, lesions and changes in skin color Neuro: Reports: lack of coordination and frequent falls; Denies: headache(s) Psych: Reports: memory loss Endo: Denies: polyuria Est[place]an/Lymph: Reports: easy bruising All/Imm: Denies: urticaria Meds/Allergies Home Medications and Allergies Home Medications Medication Instructions Recorded Confirmed Last Taken Type clopidogrel 75 mg PO DAILY 03/11/20 03/11/20 Unknown History escitalopram oxalate [Lexapro] 20 mg PO DAILY 03/11/20 03/11/20 Unknown History famotidine 20 mg PO BID 03/11/20 03/11/20 Unknown History ferrous sulfate 325 mg PO DAILY 03/11/20 03/11/20 Unknown History insulin degludec 40 unit SUBCUT DAILY 03/11/20 03/11/20 Unknown History metformin 500 mg PO DAILY 03/11/20 03/11/20 Unknown History metoprolol tartrate 100 mg PO BID 03/11/20 03/11/20 Unknown History nitroglycerin [Nitrostat] 0.4 mg SUBLINGUAL Q5M PRN 03/11/20 03/11/20 Unknown History ondansetron HCl 4 mg PO Q6H PRN 03/11/20 03/11/20 Unknown History simvastatin 5 mg PO QPM 03/11/20 03/11/20 Unknown History Allergies Allergy/AdvReac Type Severity Reaction Status Date / Time No Known Allergies Allergy Verified 03/11/20 00:02 Current Medications Current Medications Generic Name Dose Route Start Last Admin Trade Name Freq PRN Reason Stop Dose Admin Hydrocodone Bitart/Acetaminophen 1 tab 03/11/20 07:50 03/12/20 17:02 [place] 5-325 Mg PO 1 tab Q4H PRN Administration pain Albuterol/Ipratropium 3 ml 03/11/20 09:00 03/12/20 14:19 Duoneb INHALATION 3 ml Q6H.RESPIRATORY PRN Administration SHORTNESS OF BREATH Clopidogrel Bisulfate 75 mg 03/11/20 09:00 03/12/20 12:38 Plavix PO Not Given DAILY MICHELLE Dexamethasone 4 mg 03/11/20 09:00 03/12/20 17:02 Decadron PO 4 mg TID MICHELLE Administration Fluconazole 100 mg 03/11/20 12:30 03/12/20 10:21 Diflucan Oral Liq PO 100 mg DAILY MICHELLE Administration Sodium Chloride 1,000 mls @ 100 mls/hr 03/11/20 00:15 03/11/20 02:43 Sodium Chloride 0.9% IV 0 mls/hr .Q10H MICHELLE Infusion Dextrose/Sodium Chloride 1,000 mls @ 125 mls/hr 03/11/20 03:00 03/11/20 03:08 Dextrose 5%-Sod Chloride 0.45% IV 125 mls/hr .Q8H MICHELLE Administration Insulin Aspart 0 unit 03/11/20 08:00 03/12/20 19:39 Novolog SUBCUT 4 unit WM&BEDTIME MICHELLE Administration Protocol Levofloxacin 750 mg 03/11/20 09:00 03/12/20 10:11 Levaquin PO 750 mg DAILY MICHELLE Administration Protocol Morphine Sulfate 2 mg 03/12/20 18:35 03/12/20 19:55 Morphine IVP 2 mg Q4H PRN Administration SEVERE PAIN Pantoprazole Sodium 40 mg 03/11/20 09:00 03/12/20 10:11 Protonix PO 40 mg DAILY MICHELLE Administration Senna/Docusate Sodium 1 tab 03/11/20 09:00 03/12/20 19:39 Senna-S PO 1 tab BID MICHELLE Administration PFSH Acute PFSH: Medical History Brain metastases Chronic kidney disease COPD (chronic obstructive pulmonary disease) Coronary artery disease CVA (cerebral vascular accident) Port-A-Cath in place Small cell lung cancer Thyroid nodule Type 2 diabetes mellitus Surgical History H/O thyroidectomy History of appendectomy History of bronchoscopy Stented coronary artery Family History Other No significant family history Social History Smoking and tobacco status: former smoker Quit status (tobacco): has quit using tobacco Former quit date comment: 2018, [id number] smoking history Alcohol intake: never Marital status: Vitals/I&O/Wt Last Vital Signs Temp 96.6 F L 03/12/20 21:07 Pulse 123 H 03/12/20 21:07 Resp 18 03/12/20 21:07 BP 122/69 03/12/20 21:07 Pulse Ox 94 03/12/20 21:07 03/12/20 03/12/20 03/12/20 06:59 14:59 22:59 Intake Total 110 / 1167.5 120 / 120 250 / 370 Output Total 625 / 625 400 / 1025 Balance 110 / 814.5 -505 / -505 -150 / -655 Weight last 48 hrs Weight 150 lb Physical Exam Const: COMMON NORMALS: patient oriented x3 and alert GENERAL APPEARANCE: cooperative, ill appearing and frail appearing ORIENTATION/CONSCIOUSNESS: Yes awake, Yes oriented to person, Yes oriented to place and Yes oriented to time HENMT: COMMON NORMALS: normocephalic and atraumatic HEAD & SCALP: normocephalic and atraumatic Eye: COMMON NORMALS: Equal, round and reactive pupils present PUPIL: Yes Equal, round and reactive pupils present Neck/C-Spine: COMMON NORMALS: supple GENERAL: Yes normal visual inspection Resp: COMMON NORMALS: normal respiratory effort AUSCULTATION: wheezes OTHER: Diminished breath sounds bilaterally with prolonged expiratory phase and expiratory wheezing, crackles on the right Cardio: COMMON NORMALS: regular rate and regular rhythm RATE: regular rate RHYTHM: regular rhythm GI: COMMON NORMALS: Soft to palpation and non-tender INSPECTION: No abdominal distension PALPATION: Yes Soft to palpation Extremity: COMMON NORMALS: no clubbing, cyanosis or edema and no calf tenderness Neuro: COMMON NORMALS: patient oriented x3, CN's II-XII intact bilaterally, moves all extremities and no focal motor deficits SENSORIUM/ORIENTATION: Yes alert, Yes oriented to person, Yes oriented to place and Yes oriented to time SPEECH: speech normal Psych: COMMON NORMALS: cooperative Skin: COMMON NORMALS: no rashes or lesions noted GENERAL SKIN EXAM: no rashes or lesions noted Data Micro: Micro: Microbiology 03/12/20 11:06 Blood Culture - Pr eliminary Blood SPECIMEN [facility] 03/12/20 11:03 Blood Culture - Pr eliminary Blood SPECIMEN [facility] 03/12/20 00:31 Legionella Urinary Antigen - Final Urine,Clean Catch 03/11/20 00:20 Blood Culture - Pr eliminary Blood NEGATIVE TO SALVATORE E A&P Assessment and plan (1) Elevated troponin: Status: Acute (2) Altered mental status: Status: Acute (3) Brain metastases: Status: Acute (4) Small cell lung cancer: Status: Acute Patient has known coronary artery disease with left main disease. She is a complex patient with malignancy and brain mets. She has been found to have liver mets during this admission. Her prognosis is guarded. Any attempt at revascularization will need high doses of anticoagulation/antiplatelet agents which will not be safe in presence of brain mets. Even medical management with IV anticoagulation is high risk for hemorrhagic conversion of brain mets. I had a detailed discussion with patient's family and mentioned the limitations we have in management of her coronary artery disease. Patient's family understands the situation and are discussing goals of care with Dr Quezada. At this time I will recommend conservative management for CAD/troponin elevation. We will follow the patient. Thank you for involving us with the care of this patient. Please call with questions. Coding Level of Care Code Acute Paint Roller Cover Machine Setter for Xu Dossd Diagnoses Elevated troponin R77.8 Altered mental status R41.82 Brain metastases C79.31 Small cell lung cancer C34.90
[2020-03-12] MEDS: LORazepam 2 mg/mL INJ 1 mL 1 MG IVP (22:59)
[2020-03-13] VITALS (16 sets, daily range): BP systolic 112–157; BP diastolic 69–96; PULSE 99–133; RESP 16–26; TEMP 36.6–36.7; O2SAT 93–99
[2020-03-13 00:20] LABS: Glucose Point of Care 109 mg/dL (70-110)
[2020-03-13 00:56] LABS: Hematocrit 25.1 % (37.0-47.0)
--- NOTE | 2020-03-13 04:05 | PC.NURSE ---
This RN spoke with Pt's family and discussed Pt's code status with them. They decided that it was appropriate for her to be an AND. Relayed this to Dr. Etienne and code status was changed. Family is still unsure as to what hospice company they want to use.
[2020-03-13 05:40] LABS: Hematocrit 28.2 % (37.0-47.0); Hemoglobin 8.3 g/dL (11.5-15.3); Lymphocytes # 0.3 10^3/uL (0.8-4.8); Lymphocytes % 6.1 %; Mean Corpuscular HGB Conc 29.4 g/dL (30.0-36.0); Mean Corpuscular Hemoglobin 27.9 pg (28.0-34.0); Mean Corpuscular Volume 94.9 fL (81-99); Mean Platelet Volume 11.3 fL (7.4-10.4); Monocytes # 0.1 10^3/uL (0.2-0.9); Monocytes % 2.7 %; Neutrophils % 88.3 %; Nucleated Red Blood Cells % 0 %; Platelet Count 79 10^3/cmm (130-400); Red Blood Count 2.97 10^6/uL (4.1-5.3); Red Cell Distribution Width 16.7 % (12.1-15.1); White Blood Count 4.4 10^3/uL (4.0-10.0)
[2020-03-13 06:03] LABS: INR 1.17 (0.8-1.2)
[2020-03-13 06:22] LABS: Slide Review Slide Review Perform
[2020-03-13 06:31] LABS: Alanine Aminotransferase 36 U/L (0-33); Albumin Level 2.3 g/dL (3.5-5.2); Alkaline Phosphatase 84 IU/L (35-105); Anion Gap 14.9 (5-19); Aspartate Amino Transferase 58 U/L (0-32); Blood Urea Nitrogen 20 mg/dL (8-23); Calcium 7.7 mg/dL (8.5-10.5); Carbon Dioxide 23 mmol/L (22-29); Chloride 103 mmol/L (98-107); Globulin 2.7 g/dL (1.3-4.6); Glomerular Filtration Rate 61.9 mL/min (90-130); Glucose 120 mg/dL (65-115); Osmolality Calculated 288 mOsm/kg (285-295); Potassium 3.9 mmol/L (3.5-5.1); Sodium 137 mmol/L (136-145); Total Bilirubin 0.3 mg/dL (0.15-1.2)
[2020-03-13 06:41] LABS: Glucose Point of Care 118 mg/dL (70-110)
[2020-03-13] MEDS: morphine 4 mg/mL SDV 1 mL 2 MG IVP (07:53)
[2020-03-13] MEDS: ipratropium-albuterol 3 mL Neb INHALATION (08:29)
[2020-03-13] MEDS: morphine 4 mg/mL SDV 1 mL 1 MG IVP ×5 (09:25→21:08)
[2020-03-13] MEDS: nitroglycerin 1 gm/inch oint Pkt 2 INCH TOPICAL ×2 (09:28→14:58)
[2020-03-13] MEDS: clopidogrel 75 mg Tablet PO (09:28)
[2020-03-13] MEDS: dexamethasone 4 mg Tablet PO ×3 (09:29→21:08)
--- NOTE | 2020-03-13 09:30 | PC.NURSE ---
0853: I received a call from Dr. Quezada stating that she needed Nitropaste 2 inch STAT for this patient and required assistance. I placed the verbal order with read back for the 2 inch NitroBid and called pharmacy for verification. Upon verification, I pulled the NitroBid from the [facility] and went to the patient's room to assist Dr. Quezada. The patient was sitting upright on the side of her bed, reporting that she was having constant, sharp chest pain. I applied the NitroBid 2inch to her left upper chest after confirming that she had taken Nitro before without s/s of complications. Dr. Quezada and I assisted her to a left side-lying position in the bed and she began resting quietly. She continues to report increased pain/discomfort in her chest, so Dr. Quezada ordered to change her Morphine to 1 mg IVP every hour as needed for pain with the dose starting now and also added Lorazepam 1 mg PRN every hour for anxiety. I added these orders and pulled the Morphine for administration now and provided this to Ivette Marinelli, SARAH and primary nurse for this patient. I provided Ivette Marinelli with an update on new orders and NitroBid administration for angina. She verbalizes understanding.
[2020-03-13] MEDS: levoFLOXacin 750 mg Tablet PO (09:33)
[2020-03-13] MEDS: pantoprazole DR 40 mg Tablet PO (09:34)
[2020-03-13] MEDS: sennosides-docusate Tablet 1 TAB PO ×2 (09:35→17:41)
--- NOTE | 2020-03-13 09:48 | PC.NURSE ---
Morphine given per Dr. Quezada order, see MAR for further details.
--- NOTE | 2020-03-13 10:11 | PC.NURSE ---
Switch nasal cannula to BIPAP
--- NOTE | 2020-03-13 10:24 | PC.NURSE ---
Patient resting with eyes closed, audible gurgle with equal respirations noted. Side rails upX2, call light in reach.
--- NOTE | 2020-03-13 11:06 | PM.PN ---
Subjective Subjective: Interval history: Patient reported chest pain at time of exam this morning. Discussed with her and she reported that she did not want to talk about prognosis just wants to be kept comfortable. Called and discussed with her son over the phone, he will come in today. Patient remains Do Not Resuscitate/DNI. Provided Nitropaste with some relief. Vitals/I&O/Wt Last Vital Signs Temp 97.9 F 03/13/20 07:00 Pulse 116 H 03/13/20 10:47 Resp 18 03/13/20 10:47 BP 135/82 03/13/20 10:47 Pulse Ox 95 03/13/20 10:47 03/12/20 03/13/20 03/13/20 22:59 06:59 14:59 Intake Total 250 / 370 Output Total 400 / 1025 100 / 1125 200 / 200 Balance -150 / -655 -100 / -755 -200 / -200 Physical Exam Const: COMMON NORMALS: patient oriented x3 and alert GENERAL APPEARANCE: cooperative, ill appearing and frail appearing ORIENTATION/CONSCIOUSNESS: Yes awake, Yes oriented to person, Yes oriented to place and Yes oriented to time HENMT: COMMON NORMALS: normocephalic and atraumatic HEAD & SCALP: normocephalic and atraumatic Eye: COMMON NORMALS: Equal, round and reactive pupils present PUPIL: Yes Equal, round and reactive pupils present Neck/C-Spine: COMMON NORMALS: supple GENERAL: Yes normal visual inspection Resp: COMMON NORMALS: normal respiratory effort AUSCULTATION: wheezes OTHER: Diminished breath sounds bilaterally with prolonged expiratory phase and expiratory wheezing, crackles on the right Cardio: COMMON NORMALS: regular rate and regular rhythm RATE: regular rate RHYTHM: regular rhythm GI: COMMON NORMALS: Soft to palpation and non-tender INSPECTION: No abdominal distension PALPATION: Yes Soft to palpation Extremity: COMMON NORMALS: no clubbing, cyanosis or edema and no calf tenderness Neuro: COMMON NORMALS: patient oriented x3, CN's II-XII intact bilaterally, moves all extremities and no focal motor deficits SENSORIUM/ORIENTATION: Yes alert, Yes oriented to person, Yes oriented to place and Yes oriented to time SPEECH: speech normal Psych: COMMON NORMALS: cooperative Skin: COMMON NORMALS: no rashes or lesions noted GENERAL SKIN EXAM: no rashes or lesions noted Data : 03/13/20 04:50 03/13/20 04:50 Micro: Microbiology 03/11/20 00:20 Blood Culture - Preliminary Blood Escherichia coli 03/12/20 20:07 C.difficile Toxin B Gene (PCR) - Final Stool Routine Collection 03/12/20 11:06 Blood Culture - Preliminary Blood SPECIMEN COLLECTED 03/12/20 11:03 Blood Culture - Preliminary Blood SPECIMEN COLLECTED 03/12/20 00:31 Legionella Urinary Antigen - Final Urine,Clean Catch A&P Assessment and plan (1) Acute alteration in mental status: Secondary to hypoglycemia Mentation improved Status: Acute (2) Pneumonia: We will de-escalate antibiotic coverage today and continue on Levaquin Status: Acute Qualifiers: Laterality: bilateral Lung location: lower lobe of lung Pneumonia type: due to unspecified organism Qualified Code(s): J18.9 - Pneumonia, unspecified organism (3) Hypoglycemia: Hold on Tresiba and metformin Status: Acute (4) Brain metastases: Discussed with oncologist, Dr. Westbrook this morning. Status: Acute (5) Small cell lung cancer: On radiation to brain Continue on dexamethasone due to extensive brain metastases. Status: Acute (6) Abnormal transaminases: CT scan of the abdomen and pelvis shows hypodense lesion in the left hepatic lobe 4.2 x 2.5 x 3.4 cm concerning for metastatic lesion Status: Acute (7) Sepsis: Status: Acute Additional A&P Information Hypocalcemia: Corrected calcium within normal range Non-ST elevation [place]: Consult to cardiology today. Not a candidate for intervention at this time due to her significant metastatic disease. Given Nitropaste this morning due to continued chest pain. Family would like patient to be Do Not Resuscitate, DNI, discussing hospice. Patient in agreement Thrombocytopenia: Appears to be new, recheck peripheral smear and recheck labs tomorrow hold any anticoagulation Anemia: No evidence of any active bleeding will hold off on any anticoagulation 1 unit of packed red blood cells ordered for transfusion, serial H&H COPD: Oxygen per protocol, respiratory therapy to assess and treat CODE STATUS: DNR/DNI Diet: Cardiac DVT ppx: SCDs, With avoid pharmacologic DVT prophylaxis because of extensive brain metastases Attestations Medical Necessity Statement*: Patient requires further hospitalization due to metastatic cancer with chest pain and non-ST elevation [place] Coding Level of Care Code Acute Operations Manager/Coordinator for Xu Mendez Diagnoses Acute alteration in mental status R41.82 Pneumonia J18.9 Laterality: bilateral Lung location: lower lobe of lung Pneumonia type: due to unspecified organism Hypoglycemia E16.2 Brain metastases C79.31 Small cell lung cancer C34.90 Abnormal transaminases R74.8 Sepsis A41.9
[2020-03-13 11:20] LABS: Glucose Point of Care 158 mg/dL (70-110)
--- NOTE | 2020-03-13 13:46 | PC.CHAP ---
Pastoral Care Encounter/Spiritual Assessment Type of Contact [] Declined office helper clerical visit [x] Patient/Family/Request visit [] Outpatient visit [] Follow-up visit [] Physician referral [] Code/Alert [] Routine visit [] Staff referral [] Actively dying [] Patient sleeping [] Family support [] [] Out of room [] Palliative care [] [] Receiving care in room [] Pre-surgical visit [] Trauma [] Long length of stay [] ICU visit [] Other: Relational/Emotional Strength [x] Patient feels connected with others/family/visitors/staff [] Distress [] Loneliness/isolation [] Abandonment Spirituality of Patient [x] Person of May [] Attends Bahai of their May [x] Believes in Prayer [] Reads Bible or Buddhist materials [] There are Spiritual issues to be addressed [employer] Interventions [x] Prayer [x] Active listening [x] Non-anxious presence [x] Spiritual/emotional support [] Crisis/trauma care [x] Spiritual counseling [] Bereavement support [] Provided bereavement packet [] Provided Bible/devotional materials [] Provided toy/stuffed animal, coloring book to patient or family member [] Provided Communion [] Anointing/[place] [] Salvation [x] Completed spiritual assessment [] Other: Impact on Illness or Injury [] Angry [] Fearful [x] Anxious [] Often cries [] Exhaustion [] Unable to work [x] Unable to attend pentecostalism [] Unable to walk/stand [] Unable to read [] Unable to drive [] Unable to eat/drink [] Unable to sleep [] Unable to be with family [] Patient intubated [] Other: Summary Machine Cell Tuber was requested to visit patient by her sons, both of whom were by her bedside. Patient seems very drowsy and weak. Sons allowed office helper clerical to visit with her in private. Patient assured office helper clerical that everything between her and the Lord was good. She spoke of desiring to be able to attend hinduism again after a two year absence do to her illness. Patient ask for prayer. Machine Cell Tuber offered prayer on her behalf. Patient expressed she was very tried and wanted to sleep. office helper clerical inquired of any other needs, none now. Encouraged patient to contact office helper clerical if a need arises. Sons had not yet returned to patients room when office helper clerical left. Time spent with patient 15 min
--- NOTE | 2020-03-13 13:52 | PC.NURSE ---
patient resting in bed with eyes closed, equal rise and fall of chest, side rails up X2, call light in reach.
--- NOTE | 2020-03-13 16:54 | USCV_ITS ---
Shanae Seth Age: 69 Gender: F : 1950 Exam Date: 03/13/2020 06:06 Ordering Phys: Betty Quezada DO Technologist: Blanka Hawk Exam Location: [facility] [place] Indication: NSTEMI BP: 132 / 75 HR: 105 Rhythm: Sinus Technical Quality: Adequate MEASUREMENTS (Male / Female) Normal Values 2D ECHO LV Diastolic Diameter PLAX 4.6 cm 4.2 - 5.9 / 3.9 - 5.3 cm LV Systolic Diameter PLAX 2.5 cm LV Chamber Size 3.0 cm IVS Diastolic Thickness 1.0 cm 0.6 - 1.0 / 0.6 - 0.9 cm IVS Systolic Thickness 1.5 cm LVPW Diastolic Thickness 1.7 cm 0.6 - 1.0 / 0.6 - 0.9 cm LVPW Systolic Thickness 1.7 cm RV Chamber Size 2.3 cm LVOT Diameter 2.1 cm LV Ejection Fraction 2D Teich 77.2 % LV Ejection Fraction MOD 2C 43.0 % LV Ejection Fraction 2C AL 42.6 % LA Diameter 3.2 cm LA Width 3.6 cm LA Height 3.8 cm RA Width 3.1 cm RA Height 3.4 cm Aorta at Sinotubular Diameter 2.3 cm M-MODE LV Diastolic Diameter MM 4.7 cm 4.2 - 5.9 / 3.9 - 5.3 cm LV Systolic Diameter MM 4.0 cm LV Ejection Fraction MM Teich 31.3 % IVS Diastolic Thickness MM 1.5 cm 0.6 - 1.0 / 0.6 - 0.9 cm IVS Systolic Thickness MM 1.8 cm LVPW Diastolic Thickness MM 1.6 cm 0.6 - 1.0 / 0.6 - 0.9 cm LVPW Systolic Thickness MM 1.8 cm Aortic Annulus Diameter 2.7 cm LA Ao Ratio MM 1.5 MV E Point Septal Separation 1.5 cm DOPPLER AV Peak Velocity 141.0 cm/s LVOT Peak Velocity 105.7 cm/s AV Area Cont Eq vti 2.4 cm squared AV Area Cont Eq pk 2.5 cm squared MV Area PHT 9.6 cm squared Mitral E to A Ratio 4.7 MV E' Velocity 72.5 cm/s Mitral E to MV E' Ratio 11.1 Mitral E to LV E' Lateral Ratio 11.0 Mitral E to LV E' Septal Ratio 11.3 TR Peak Velocity 202.3 cm/s TR Peak Gradient 16.4 mmHg TV Peak E Velocity 114.0 cm/s Right Atrial Pressure 3.0 mmHg Pulmonary Artery Systolic Pressu 19.4 mmHg PV Peak Velocity 100.0 cm/s RV Acceleration Time 0.1 s RV Ejection Time 0.4 s RV AcT/ET 0.3 FINDINGS Left Ventricle Normal left ventricular size, systolic function and wall thickness, with no diagnostic regional wall motion abnormalities. Left ventricular ejection fraction is estimated at 55-60%. Right Ventricle Normal right ventricular size and systolic function. Right ventricular systolic pressure 19.4 mmHg. Right Atrium Right atrium not well visualized. Normal right atrial size. Left Atrium Normal left atrial size. Mitral Valve Mildly thickened mitral valve. No mitral valve stenosis. Mild mitral valve regurgitation. Aortic Valve Aortic valve not well visualized. Tricuspid Valve Tricuspid valve not well visualized. Pulmonic Valve Pulmonic valve not well visualized. No pulmonary valve stenosis. Pericardium No pericardial effusion. Normal-sized inferior vena cava. Aorta Normal size aortic root and proximal ascending aorta. CONCLUSIONS 1. This is a technically difficult study. 2. Normal left ventricular size, systolic function and wall thickness, with no diagnostic regional wall motion abnormalities. Left ventricular ejection fraction is estimated at 55-60%. 3. Normal right ventricular size and systolic function. 4. Normal pulmonary artery pressure. 5. No prior similar studies to compare. Haylie Dillard MD (Electronically Signed) Final Date: 13 March 2020 17:48 S
[2020-03-13 17:32] LABS: Glucose Point of Care 250 mg/dL (70-110)
[2020-03-13] MEDS: LORazepam 2 mg/mL INJ 1 mL 1 MG IVP (21:08)
[2020-03-13 22:26] LABS: Glucose Point of Care 387 mg/dL (70-110)
[2020-03-14] VITALS (9 sets, daily range): BP systolic 132–156; BP diastolic 79–98; PULSE 112–132; RESP 16–26; TEMP 36.3–36.7; O2SAT 93–97
[2020-03-14] MEDS: nitroglycerin 1 gm/inch oint Pkt 2 INCH TOPICAL ×3 (02:27→15:09)
[2020-03-14] MEDS: LORazepam 2 mg/mL INJ 1 mL 1 MG IVP (02:27)
--- NOTE | 2020-03-14 02:28 | PC.NURSE ---
This RN withheld nitropaste from 2100 per charge nurse Tomeka Min RN due to administering morphine 2mg IVP at 2100 med pass and this nitropaste would still be available to give if and when patient had chest pain. This nurse did not feel comfortable administering both the paste and morphine and morphine was more critical for this patient at the time. This RN did administer nitropaste at a later time due to patient having chest pain rated 8/10.
[2020-03-14] MEDS: morphine 4 mg/mL SDV 1 mL 1 MG IVP ×3 (02:36→15:17)
--- NOTE | 2020-03-14 07:08 | PC.NURSE ---
Received report from Domingo Camacho RN. Assumed care of patient.
[2020-03-14] MEDS: levoFLOXacin 750 mg Tablet PO (07:35)
[2020-03-14] MEDS: sennosides-docusate Tablet 1 TAB PO (07:35)
[2020-03-14] MEDS: clopidogrel 75 mg Tablet PO (07:36)
[2020-03-14] MEDS: HYDROcodone-acetaminophen 5-325 mg Tablet 1 TAB PO (07:36)
[2020-03-14] MEDS: pantoprazole DR 40 mg Tablet PO (07:36)
[2020-03-14] MEDS: dexamethasone 4 mg Tablet PO ×2 (07:36→15:09)
[2020-03-14 08:35] LABS: Glucose Point of Care 197 mg/dL (70-110)
--- NOTE | 2020-03-14 11:05 | P.DS_ITS ---
Discharge Providers Date of Admission: 03/11/20 05:29 Date of Discharge: March 14, 2020 Attending Provider at Admission: Tonny Etienne MD Attending Provider at Discharge: Betty Quezada DO Primary Care Provider: Zion Jha MD Diagnoses at Discharge Discharge Diagnosis (1) Acute alteration in mental status: Status: Acute (2) Pneumonia: Status: Acute Qualifiers: Laterality: bilateral Lung location: lower lobe of lung Pneumonia type: due to unspecified organism Qualified Code(s): J18.9 - Pneumonia, unspecified organism (3) Hypoglycemia: Status: Acute (4) Brain metastases: Status: Acute (5) Small cell lung cancer: Status: Acute (6) Abnormal transaminases: Status: Acute (7) Sepsis: Status: Acute Reason for Visit Reason for Visit: HYPOGLYCEMIA Hospital Course Hospital Course: Patient was seen and evaluated in the emergency department noted to have concern for altered mental status secondary to hypoglycemia. She was admitted and given IV fluids with dextrose and blood sugars were monitored closely. Patient had known lung cancer with metastasis to her brain, she had been receiving radiation therapy. Patient was noted to have concern for pneumonia and started on antibiotics. She was then on CT scan noted to have a lesion in the liver with elevated transaminases. She was taken for CT scan of the abdomen and pelvis which showed concern for metastatic lesions throughout her abdomen and her liver, adrenal gland and lymph nodes. Patient had known coronary artery disease but had not had any recent coronary intervention for this due to the work-up for the underlying malignancy. She then developed a non-ST elevation GA and cardiology was consulted. Due to the concern for her widely metastatic cancer and cardiac concerns she was not deemed to be a candidate for further intervention. Medical management was elected by patient and family. After discussion with patient's family members including her children and sister it was deemed that they would like to proceed with hospice care. Discussed this with patient's oncologist, due to widely metastatic disease and cardiac issues he agreed that hospice was the best choice of care. Physical Exam Const: COMMON NORMALS: alert GENERAL APPEARANCE: cooperative, ill appearing and frail appearing ORIENTATION/CONSCIOUSNESS: Yes awake, Yes oriented to person, Yes oriented to place and Yes oriented to time HENMT: COMMON NORMALS: normocephalic and atraumatic HEAD & SCALP: normocephalic and atraumatic Eye: COMMON NORMALS: Equal, round and reactive pupils present PUPIL: Yes Equal, round and reactive pupils present Neck/C-Spine: COMMON NORMALS: supple GENERAL: Yes normal visual inspection Resp: COMMON NORMALS: normal respiratory effort AUSCULTATION: wheezes OTHER: Diminished breath sounds bilaterally with prolonged expiratory phase and expiratory wheezing, crackles on the right Cardio: COMMON NORMALS: regular rate and regular rhythm RATE: regular rate RHYTHM: regular rhythm GI: COMMON NORMALS: Soft to palpation and non-tender INSPECTION: No abdominal distension PALPATION: Yes Soft to palpation Extremity: COMMON NORMALS: no clubbing, cyanosis or edema and no calf tenderness Neuro: COMMON NORMALS: CN's II-XII intact bilaterally, moves all extremities and no focal motor deficits SENSORIUM/ORIENTATION: Yes alert, Yes oriented to person, Yes oriented to place and Yes oriented to time SPEECH: speech normal Psych: COMMON NORMALS: cooperative Skin: COMMON NORMALS: no rashes or lesions noted GENERAL SKIN EXAM: no ra shes or lesions noted Discharge Data Data Completed and Pending: Completed Studies During Hospitalization Category Date Time Status CT abdomen pelvis w con* [id number] Rout ine Cat Scan 03/11/20 11:[address] angio chest PE protcl 12608 Stat Cat Scan 03/11/20 02:[address] head wo con* 7 0450 Stat Cat Scan 03/11/20 00:04 Completed XR chest 1V setphen ble 91011 Stat Exams 03/11/20 00:04 Completed XR chest 1V stephen ble [id number] Stat Exams 03/12/20 07:16 Completed CV echo complete* [id number] Routine Ultrasound 03/13/20 16:54 Completed Pending at discharge Category Date Time Status Bacterial Antigen Stat Lab 03/11/20 07:50 Uncollected Blood Culture Sta t Lab 03/11/20 00:20 Results Blood Culture Sta t Lab 03/12/20 11:06 Results MRSA by PCR Stat Lab 03/11/20 07:50 Uncollected Sputum Culture Ro utine Lab 03/11/20 07:50 Uncollected Labs from last 24 hours 03/14/20 03/13/20 03/13/20 07:31 22:21 17:18 POC Glucose 197 387 250 03/13/20 11:05 POC Glucose 158 Vitals: Last Vital Signs Temp 98.0 F 03/14/20 07:00 Pulse 112 H 03/14/20 08:16 Resp 20 H 03/14/20 08:16 BP 132/79 03/14/20 07:00 Pulse Ox 93 03/14/20 08:16 Discharge Plan Discharge Patient Disposition: Hospice - Home Condition: Fair Prescriptions: New dexamethasone 4 mg Tablet 4 mg PO TID 14 Days Qty: 42 RF: 0 levofloxacin 750 mg Tablet 750 mg PO DAILY 7 Days Qty: 7 RF: 0 Continued metoprolol tartrate 100 mg Tablet 100 mg PO BID RF: 0 ondansetron HCl 4 mg Tablet 4 mg PO Q6H PRN (Reason: zofran) RF: 0 famotidine 20 mg Tablet 20 mg PO BID RF: 0 simvastatin 5 mg Tablet 5 mg PO QPM RF: 0 ferrous sulfate 325 mg (65 mg iron) Tablet 325 mg PO DAILY RF: 0 Nitrostat 0.4 mg Tablet, Sublingual 0.4 mg SUBLINGUAL Q5M PRN (Reason: chest pain) RF: 0 Lexapro 20 mg Tablet 20 mg PO DAILY RF: 0 Discontinued metformin 500 mg Tablet 500 mg PO DAILY RF: 0 clopidogrel 75 mg Tablet 75 mg PO DAILY RF: 0 insulin degludec 100 unit/mL Solution 40 unit SUBCUT DAILY RF: 0 Discharge Orders: Discharge Order (Routine); Ordered 03/14/20 Ordered By: Betty Quezada Referrals: Zion Jha MD [Primary Care Provider] - Discharge Diet: Advance as tolerated Discharge Activity: Increase activity as tolerated Activity Restrictions/Additional Instructions: Plan to discharge to home with hospice care Continue with hospice care provider in the outpatient setting Increase activity and diet as tolerated. Medications as needed for pain or air hunger Call your hospice care provider or physician for any acute concern or question. Discharge Attestations Time Spent in Discharge Care*: greater than 30 min Specific Discharge Activities: Specific discharge activities: educating and/or supporting family/caregiver, discussing with case management director/social workers/dc planners and documenting/other paperwork Quality Metrics Clinical Quality Measures During this hospital stay, did patient experience: None Coding Level of Care Code Acute Registered Nurses for Xu Mendez Diagnoses Acute alteration in mental status R41.82 Pneumonia J18.9 Laterality: bilateral Lung location: lower lobe of lung Pneumonia type: due to unspecified organism Hypoglycemia E16.2 Brain metastases C79.31 Small cell lung cancer C34.90 Abnormal transaminases R74.8 Sepsis A41.9
[2020-03-14 11:50] LABS: Glucose Point of Care 214 mg/dL (70-110)
--- NOTE | 2020-03-14 15:08 | PC.NURSE ---
dressing changed to left forearm skin tear optifoam applied
--- NOTE | 2020-03-14 16:48 | PC.NURSE ---
patient discharged via stretcher to home with hospice
--- NOTE | 2020-03-18 19:25 | PC.SOCIAL ---
Patient's son called to inquire on how to get her medication to help her sleep. Advised him to call [facility] about this and they will talk to her doctor. He reports he has had some issue with the agency getting her the needed DME and asking about spare bedsheets. Encouraged him to talk to [facility] about these concerns.
== END 2020-03-14 16:50 | disposition hospice, home (50) | DRG 871 ==
LOC: ER 03-11 04:46 → MEDSURG 03-11 07:07
PROVIDERS: Emergency Medicine; Admitting Provider Internal Medicine; Visit Provider Family Medicine
DX: A41.9 Sepsis, unspecified organism (principal); J18.9 Pneumonia, unspecified organism; I21.4 Non-ST elevation (NSTEMI) myocardial infarction; C79.31 Secondary malignant neoplasm of brain; C34.90 Malignant neoplasm of unspecified part of unspecified bronchus or lung; J44.0 Chronic obstructive pulmonary disease with (acute) lower respiratory infection; E83.51 Hypocalcemia; E11.649 Type 2 diabetes mellitus with hypoglycemia without coma; Z51.5 Encounter for palliative care; Z79.4 Long term (current) use of insulin; Z79.02 Long term (current) use of antithrombotics/antiplatelets; Z66 Do not resuscitate; D69.6 Thrombocytopenia, unspecified; Z79.52 Long term (current) use of systemic steroids; Z79.899 Other long term (current) drug therapy; Z86.73 Personal history of transient ischemic attack (TIA), and cerebral infarction without residual deficits; N18.9 Chronic kidney disease, unspecified; E11.22 Type 2 diabetes mellitus with diabetic chronic kidney disease; I25.10 Atherosclerotic heart disease of native coronary artery without angina pectoris; Z87.891 Personal history of nicotine dependence; D63.1 Anemia in chronic kidney disease
CPT/HCPCS: 12345; 36415; 36416; 36430; 36600; 70450; 71045; 71275; 74177; 80053; 80500; 81001; 82803; 82962; 83605; 83735; 83880; 84146; 84484; 85007; 85014; 85018; 85025; 85378; 85610; 86850; 86900; 86920; 87040; 87077; 87186; 87426; 87449; 87493; 87804; 93005; 93306; 94640; 94660; 96372; 96375; 99284; J0131; J1815; J1940; J2060; J2270; J2405; J2543; J2930; J3370; J3490; J7030; J7040; J7050; J7799; J8540; P9040; Q9967